=== PATIENT | male | born 1945 | race American Indian/Alaskan Native ===

== ENCOUNTER 2020-04-17 19:21 | Emergency (ER) | payer OTHER ==
--- OUTSIDE RECORDS SUMMARY | 2020-04-17 19:23 | XMS REPORT | Summary of Care ---
:1945 Author Organization [facility] Address [address] [place] [address] Care Team Providers Name Role Phone Karla Turner MD Primary Care Provider [phone] Reason for Visit (Routine) Status Reason Specialty Diagnoses / Procedures Referred By C ontact Referred To Contact Closed Radiology Procedures Robby Turner X-Ray XR CHEST 2 VW MD Karla [address] [place] [address] XR CHEST 2 VW [address] [place], [place] [address] [place] [address] Phone: [phone] Fax: Encounter Details Date Type Department Care Team Description 02/15/2020 Hospital Encounter [facility] Radiolog y Arrived [facility] [address] [place] [id number] [place] [phone] Allergies No Known Allergiesdocumented as of this encounter (statuses as of 02/16/2020) Medications Medication Sig Dispensed Refills Start Date End Date Status LISINOPRIL ORAL Take by mouth. 0 Active LOVASTATIN ORAL Take by mouth. 0 Active documented as of this encounter (statuses as of 02/16/2020) Active Problems No known active problemsdocumented as of this encounter (statuses as of 02/16/2020) Social History Tobacco Use Types Packs/Day Years Used Date Never Assessed Sex Assigned at Date Recorded Not on file COVID-19 Exposure Response Date Recorded In the last month, have you been in contact with No / Unsure 02/15/2020 2:43 PM CDT someone who was confirmed or suspected to have Coronavirus / COVID-19? documented as of this encounter Last Filed Vital Signs Not on filedocumented in this encounter Plan of Treatment Health Maintenance Due Date Last Done Comments HEPATITIS C (HCV) SCREEN 1945 Depression Screening 1957 DTaP,Tdap,and Td Vaccines (1 - Tdap) 1964 COLON CANCER SCREENING ANNUAL FIT/FOBT 1995 COLON CANCER SCREENING FIT DNA EVERY 3 YEARS 1995 COLON CANCER SCREENING SIGMOIDOSCOPY EVERY 5 YEARS 1995 COLONOSCOPY 1995 Colorectal Cancer Screening 1995 Zoster Recombinant Vaccine (SHINGRIX) (1 of 2) 1995 Medicare Wellness Visit 2010 PNEUMOCOCCAL VACCINES 65+ (1 of 1 - PPSV23) 2010 INFLUENZA VACCINE (#1) 2020 documented as of this encounter Procedures Procedure Name Priority Date/Time Associated Diagnosis Comme nts XR CHEST 2 VW Routine 02/15/2020 3:15 PM Cough Results for this CDT procedure are i n the results section . documented in this encounter Results XR CHEST 2 VW (02/15/2020 3:15 PM CDT) Specimen Narrative Performed At This result has an attachment that is no t available. HISTORY: Chest pain. PACS/VR/DOSE TECHNIQUE: PA and lateral views of the chest are obtai minerva. FINDINGS: No acute pneumonia detected. No pneumothorax or pleural effusion or pulmonary congestion. Cardiothoracic ratio of appro ximately 12.6/20 7. Cm is consistent with normal cardiac size. Calcified g ranuloma noted in the right lower lung. Old, healed fracture noted in left s ixth rib. CONCLUSIONS: No signs of acute cardiopulmonary disease . Procedure Note [facility], Radiant Results Inft User - 2019 3:19 PM CDT HISTORY: Chest pain. TECHNIQUE: PA and lateral views of the c hest are obtained. FINDINGS: No acute pneumonia detected. N o pneumothorax or pleural effusion or pulmonary congestion. Cardiothoracic ratio of approximately 12.6/20 7. Cm is consistent with normal cardiac siz e. Calcified granuloma noted in the right lower lung. Old, healed fracture n oted in left sixth rib. CONCLUSIONS: No signs of acute cardiopul monary disease. Performing Organization Address City/State/Zipcode Phone Number PACS/VR/DOSE documented in this encounter Visit Diagnoses Diagnosis Cough documented in this encounter Insurance Payer Benefit Plan / Subscriber ID Effective Dates Phone Addre ss Type Group [employer] [id number] 2019-Present Medicare Adv spring HMO [phone] [id number] (Work) documented as of this encounter
--- OUTSIDE RECORDS SUMMARY | 2020-04-17 19:23 | XMS REPORT | Summary of Care ---
:1945 Author Organization [facility] - Health Address [address] [place] [address] Care Team Providers Name Role Phone Karla Turner MD Primary Care Provider [phone] Encounter Details Date Type Department Care Team Description 02/15/2020 Orders Only [facility] Doctor Unassigned, No [address] [facility] Name [place] [id number] [address] [place] [phone] Allergies No Known Allergiesdocumented as of this encounter (statuses as of 02/15/2020) Medications Medication Sig Dispensed Refills Start Date End Date Status LISINOPRIL ORAL Take by mouth. 0 Active LOVASTATIN ORAL Take by mouth. 0 Active documented as of this encounter (statuses as of 02/15/2020) Active Problems No known active problemsdocumented as of this encounter (statuses as of 02/15/2020) Social History Tobacco Use Types Packs/Day Years [...] filedocumented in this encounter Plan of Treatment Date Type Specialty Care Team Description 02/15/2020 Appointment Radiology Radiology [address] [place] [id number] documented as of this encounter Procedures Procedure Name Priority Date/Time Associated Diagnosis Comme nts ASSIGNMENT OF BENEFITS Routine 02/15/2020 2:44 PM CDT documented in this encounter Results Not on filedocumented in this encounter Insurance Payer Benefit Plan Subscriber ID Effective Phone Address Typ e / Group Dates MEDICARE MEDICARE PART [id number] 2010-Pres [phone] [employer]. LATONYA fontanez [employer] ent [id number] YANE RAINES [phone] [id number] 2019-Pres Medicare Adv spring ent HMO documented as of this encounter
--- OUTSIDE RECORDS SUMMARY | 2020-04-17 19:23 | XMS REPORT | Continuity of Care Document ---
:[address] [facility] t Address [address] [place] [address] Care Team Providers Name Role Phone Radiology Attending Clinician Unavailable Doctor Unassigned, [place] Attending Clinician Unavailable Problems This patient has no known problems. Allergies, Adverse Reactions, Alerts This patient has no known allergies or adverse reactions. Medications This patient has no known medications. Procedures This patient has no known procedures. Encounters Start End Encounter Admission Attending Care Care Encounter Source Date/Time Date/Time Type Type Clinicians Facility Department ID 2020-02-15 2020-02-15 [facility] Radiology [facility] [id number] 14:46:04 23:59:00 Encounter Сергей [id number] [place] [id number] [place] [id number] 2020-02-15 2020-02-15 Orders Doctor KHURRAM [id number] 00:00:00 00:00:00 Only Unassigned, [place] [id number] [place] [facility] [id number] Results This patient has no known results.
--- NOTE | 2020-04-17 20:10 | RAD REPORT ---
EXAM DESCRIPTION: CT - Head Brain Wo Cont - 04/17/2020 7:55 pm CLINICAL HISTORY: Alteration of awareness/confusion COMPARISON: 2018 MRI TECHNIQUE: Computed axial tomography of the head was obtained. IV contrast was not requested. All CT scans are performed using dose optimization technique as appropriate and may include automated exposure control or mA/KV adjustment according to patient size. FINDINGS: An intracranial bleed is not seen . The ventricles are normal in caliber. No extra-axial fluid collection is noted. 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 Fluid within the sinuses/ mastoids is not seen. IMPRESSION: No acute intracranial abnormality is seen. If patient's symptoms persist MRI of the bra in would be recommended.
[2020-04-17 20:41] LABS: Absolute Lymphocytes (CBC) 2.3 K/uL (0.7-4.9); Basophils % 0.3 % (0-1.3); Lymphocytes % 22.4 % (15.3-44.8); MPV 8.5 fL (7.6-11.3); RBC Red Blood Cell Count 5.05 M/uL (4.33-5.43)
[2020-04-17 20:43] LABS: Protime INR 0.91
[2020-04-17] MEDS ORDERED: NA CHLORIDE 0.9% 1,000 ML ONE (20:49)
[2020-04-17 20:53] LABS: ALT/SGPT 23 U/L (12-78); AST/SGOT 19 U/L (15-37); Albumin 3.4 g/dL (3.4-5.0); Alkaline Phosphatase 72 U/L (45-117); BUN Blood Urea Nitrogen 22 mg/dL (7-18); Bicarbonate 26 mmol/L (21-32); Bilirubin Direct < 0.1 mg/dL (0-0.2); Bilirubin Total 0.2 mg/dL (0.2-1.0); CKMB Creatine Kinase MB < 1.0 ng/mL (0.3-3.6); Creatine Phosphokinase 72 U/L (39-308); Glucose Level 144 mg/dL (74-106); Lipase 162 U/L (73-393); Magnesium 1.7 mg/dL (1.8-2.4); Potassium 3.5 mmol/L (3.5-5.1); Protein, Total 7.4 g/dL (6.4-8.2); Sodium Level 143 mmol/L (136-145); Troponin (Emerg Dept Use Only) < 0.02 ng/mL (0.0-0.045)
--- NOTE | 2020-04-17 20:58 | RAD REPORT ---
EXAM DESCRIPTION: Laura Single View04/17/2020 8:13 pm CLINICAL HISTORY: Congestion COMPARISON: 2013 FINDINGS: The lungs appear clear of acute infiltrate. The heart is normal size IMPRESSION: No acute abnormalities displayed
--- NOTE | 2020-04-17 22:55 | EDPHYS ---
Physician Documentation [facility] Name: Jose G Corona Age: 74 yrs Sex: Male : 1945 Arrival Date: 04/17/2020 Time: 19:27 Bed 17 Private MD: ED Physician Yudelka Delgado HPI: 04/17 20:26 This 74 yrs old Other Male presents to ER via EMS with complaints of Near Syncope. ma2 20:26 The patient has experienced near-syncope. Onset: The symptoms/episode began/occurred ma2 gradually, 1 hour(s) ago. Duration: This was a single episode. Associated signs and symptoms: Pertinent negatives: agitation, blurred vision, combativeness, confusion, diarrhea, dizziness, headache. Current symptoms: Currently, the patient is not experiencing any symptoms. The patient has experienced a previous episode. patient states he felt dizzy while eating like room is spinning, he does not pass out of fell, he remembers what happened, he states since the stroke he has been feeling positional spinning episodes that lasts for few seconds quick on/off, he has no symptoms now, he states he was at dinner and his daughter got scared and called ems.. Historical: - Allergies: 19:36 No Known Allergies; dm5 - Home Meds: 19:36 atorvastatin oral oral [Active]; clopidogrel oral oral [Active]; losartan oral oral dm5 [Active]; amlodipine oral [Active]; - PMHx: 19:36 CVA; High Cholesterol; dm5 - PSHx: 19:36 Carotid surgery; dm5 - Immunization history:: Adult Immunizations up to date. - Social history:: Patient/guardian denies using alcohol, street drugs, The patient lives with family, Smoking status: Patient/guardian denies using tobacco. - Family history:: not pertinent. ROS: 20:26 Constitutional: Negative for fever, chills, and weight loss. ma2 20:26 All other systems are negative. Exam: 20:26 Abdomen/GI: Exam negative for ma2 20:26 Constitutional: This is a well developed, well nourished patient who is awake, alert, and in no acute distress. Head/Face: Normocephalic, atraumatic. Eyes: Pupils equal round and reactive to light, extra-ocular motions intact. Lids and lashes normal. Conjunctiva and sclera are non-icteric and not injected. Cornea within normal limits. Periorbital areas with no swelling, redness, or edema. ENT: Nares patent. No nasal discharge, no septal abnormalities noted. Tympanic membranes are normal and external auditory canals are clear. Oropharynx with no redness, swelling, or masses, exudates, or evidence of obstruction, uvula midline. Mucous membranes moist. Neck: Trachea midline, no thyromegaly or masses palpated, and no cervical lymphadenopathy. Supple, full range of motion without nuchal rigidity, or vertebral point tenderness. No Meningismus. Chest/axilla: Normal chest wall appearance and motion. Nontender with no deformity. No lesions are appreciated. Cardiovascular: Regular rate and rhythm with a normal S1 and S2. No gallops, murmurs, or rubs. Normal PMI, no JVD. No pulse deficits. Respiratory: Lungs have equal breath sounds bilaterally, clear to auscultation and percussion. No rales, rhonchi or wheezes noted. No increased work of breathing, no retractions or nasal flaring. Abdomen/GI: Soft, non-tender, with normal bowel sounds. No distension or tympany. No guarding or rebound. No evidence of tenderness throughout. Back: No spinal tenderness. No costovertebral tenderness. Full range of motion. Skin: Warm, dry with normal turgor. Normal color with no rashes, no lesions, and no evidence of cellulitis. MS/ Extremity: Pulses equal, no cyanosis. Neurovascular intact. Full, normal range of motion. Neuro: Awake and alert, GCS 15, oriented to person, place, time, and situation. Cranial nerves II-XII grossly intact. Motor strength 5/5 in all extremities. Sensory grossly intact. Cerebellar exam normal. Normal gait. Psych: Awake, alert, with orientation to person, place and time. Behavior, mood, and affect are within normal limits. Vital Signs: 19:29 BP 172 / 95; Pulse 98; Resp 20; Temp 98.3(TE); Pulse Ox 100% on R/A; Pain 0/10; dm5 20:58 BP 151 / 76; Pulse 85; Resp 18; Pulse Ox 96% on R/A; aj1 22:19 BP 146 / 84; Pulse 84; Resp 18; Pulse Ox 97% on R/A; aj1 23:00 BP 146 / 87; Pulse 81; Resp 18; Pulse Ox 98% on R/A; aj1 04/18 00:00 BP 153 / 80; Pulse 80; Resp 18; Pulse Ox 98% on R/A; aj1 MDM: 04/17 19:27 Patient medically screened. [facility] 20:26 Differential Diagnosis: emotional response, idiopathic syncope, vasovagal episode, ma2 vertigo. 22:53 Data reviewed: vital signs, nurses notes. Counseling: I had a detailed discussion with ma the patient and/or guardian regarding: the historical points, exam findings, and any diagnostic results supporting the discharge/admit diagnosis, the presence of at least one elevated blood pressure reading (>120/80) during this emergency department visit, the need for outpatient follow up. Response to treatment: the patient's symptoms have markedly improved after treatment. 04/17 19:29 Order name: UDS [facility] 04/17 19:29 Order name: Basic Metabolic Panel [facility] 04/17 19:29 Order name: CBC with Diff [facility] 04/17 19:29 Order name: Ckmb; Complete Time: 21:45 nc2 04/17 19:29 Order name: CPK; Complete Time: 21:45 nc2 04/17 19:29 Order name: Hepatic Function; Complete Time: 21:45 nc2 04/17 19:29 Order name: Lipase; Complete Time: 21:45 ma2 04/17 19:29 Order name: Magnesium; Complete Time: 21:45 nc2 04/17 19:29 Order name: Protime (+inr); Complete Time: 21:45 nc2 04/17 19:29 Order name: Ptt, Activated; Complete Time: 21:45 nc2 04/17 19:29 Order name: Troponin (emerg Dept Use Only); Complete Time: 21:45 nc2 04/17 19:29 Order name: Urine Drug Screen [facility] 04/17 19:29 Order name: Basic Metabolic Panel; Complete Time: 21:45 EDMS 04/17 19:29 Order name: CBC with Automated Diff; Complete Time: 21:45 EDMS 04/17 19:29 Order name: CT Head Brain wo Cont; Complete Time: 21:45 nc2 04/17 19:29 Order name: EKG; Complete Time: 19:30 ma2 04/17 19:29 Order name: Cardiac monitoring; Complete Time: 20:18 ma2 04/17 19:29 Order name: EKG - Nurse/Tech; Complete Time: 20:33 ma2 04/17 19:29 Order name: IV Saline Lock; Complete Time: 20:18 ma2 04/17 19:29 Order name: Labs collected and sent; Complete Time: 20:18 ma2 04/17 19:29 Order name: NPO; Complete Time: 20:18 ma2 04/17 19:29 Order name: O2 Per Protocol; Complete Time: 20:18 ma2 04/17 19:29 Order name: O2 Sat Monitoring; Complete Time: 20:18 ma2 04/17 19:29 Order name: Chest Single View XRAY; Complete Time: 21:45 ma2 04/17 23:01 Order name: Urine Dipstick--Ancillary (enter results) mw2 Administered Medications: Discontinued: NS 0.9% 1000 ml IV at 125 ml/hr continuous 20:37 Drug: NS 0.9% 1000 ml Route: IV; Rate: 125 ml/hr; Site: right antecubital; aj1 23:18 Follow up: IV Intake: 200ml dm5 04/18 00:25 Follow up: IV Status: Order to discontinue infusion aj1 Disposition: 04/17/20 22:54 Discharged to Home. Impression: Benign paroxysmal vertigo. - Condition is Stable. - Discharge Instructions: Benign Positional Vertigo. - Prescriptions for Meclizine 25 mg Oral Tablet - take 1 tablet by ORAL route every 8 hours As needed; 30 tablet. - Medication Reconciliation Form, Thank You Letter, Antibiotic Education, Prescription Opioid Use form. - Follow up: Private Physician; When: Tomorrow; Reason: Continuance of care. Signatures: Dispatcher [employer] Eli Pineda RN RN aj1 Leslye Campbell RN RN dm5 Yudelka Delgado MD MD ma2 Corrections: (The following items were deleted from the chart) 00:25 04/17 22:54 04/17/2020 22:54 Discharged to Home. Impression: Benign paroxysmal vertigo. aj1 Condition is Stable. Prescriptions for Meclizine 25 mg Oral Tablet - take 1 tablet by ORAL route every 8 hours As needed; 30 tablet. and Forms are Medication Reconciliation Form, Thank You Letter, Antibiotic Education, Prescription Opioid Use. Follow up: Private Physician; When: Tomorrow; Reason: Continuance of care. ma2
--- NOTE | 2020-04-17 22:55 | ER ---
Nurse's Notes [facility] Name: Jose G Corona Age: 74 yrs Sex: Male : 1945 Arrival Date: 04/17/2020 Time: 19:27 Bed 17 Private MD: Diagnosis: Benign paroxysmal vertigo Presentation: 04/17 19:29 Chief complaint: EMS states: pt had a near syncopal episode while eating dinner and dm5 became sweaty. Daughter thought pt was having another stroke. Pt EKG in route showed multiple PVCs. Pt denies any complaints at this time and states that all symptoms have resolved. Coronavirus screen: Client denies travel out of the [place] in the last 14 days. At this time, the client does not indicate any symptoms associated with coronavirus-19. Ebola Screen: Patient negative for fever greater than or equal to 101.5 degrees Fahrenheit, and additional compatible Ebola Virus Disease symptoms Patient denies exposure to infectious person. Patient denies travel to an Ebola-affected area in the 21 days before illness onset. No symptoms or risks identified at this time. Initial Sepsis Screen: Does the patient meet any 2 criteria? No. Patient's initial sepsis screen is negative. Does the patient have a suspected source of infection? No. Patient's initial sepsis screen is negative. Risk Assessment: Do you want to hurt yourself or someone else? Patient reports no desire to harm self or others. Onset of symptoms was April 17, 2020 at 19:00. 19:29 Method Of Arrival: EMS: [facility] dm5 19:29 Acuity: CHRIS 2 dm5 Historical: - Allergies: 19:36 No Known Allergies; dm5 - Home Meds: 19:36 atorvastatin oral oral [Active]; clopidogrel oral oral [Active]; losartan oral oral dm5 [Active]; amlodipine oral [Active]; - PMHx: 19:36 CVA; High Cholesterol; dm5 - PSHx: 19:36 Carotid surgery; dm5 - Immunization history:: Adult Immunizations up to date. - Social history:: Patient/guardian denies using alcohol, street drugs, The patient lives with family, Smoking status: Patient/guardian denies using tobacco. - Family history:: not pertinent. Screenin:45 Abuse screen: Denies threats or abuse. Denies injuries from another. Nutritional aj1 screening: No deficits noted. Tuberculosis screening: No symptoms or risk factors identified. 04/18 00:24 Fall Risk None identified. aj1 Assessment: 04/17 19:45 General: Appears in no apparent distress. comfortable, Behavior is calm, cooperative, aj1 appropriate for age. Pain: Denies pain. Neuro: Level of Consciousness is awake, alert, obeys commands, Oriented to person, place, time, situation, Golf Sales Manager are equal bilaterally Moves all extremities. Full function Speech is normal, Facial symmetry appears normal, Reports near syncope. Cardiovascular: Reports diaphoresis, lightheadedness, Denies chest pain, palpitations, shortness of breath, Heart tones S1 S2 present Patient's skin is warm and dry. Rhythm is regular Chest pain is denied. Respiratory: Airway is patent Respiratory effort is even, unlabored, Respiratory pattern is regular, symmetrical, Denies cough, shortness of breath. GI: No signs and/or symptoms were reported involving the gastrointestinal system. : No signs and/or symptoms were reported regarding the genitourinary system. EENT: No signs and/or symptoms were reported regarding the EENT system. Derm: No signs and/or symptoms reported regarding the dermatologic system. Skin is pink, warm \T\ dry. normal. Musculoskeletal: No signs and/or symptoms reported regarding the musculoskeletal system. Circulation, motion, and sensation intact. 19:50 Reassessment: Patient transported to CT via stretcher. aj1 20:05 Reassessment: CXR at bedside. aj1 20:56 Reassessment: Patient appears in no apparent distress at this time. No changes from aj1 previously documented assessment. Patient and/or family updated on plan of care and expected duration. Pain level reassessed. Patient is alert, oriented x 3, equal unlabored respirations, skin warm/dry/pink. 22:18 Reassessment: Patient and/or family updated on plan of care and expected duration. Pain aj1 level reassessed. General: Appears in no apparent distress. distressed, Behavior is calm, cooperative, appropriate for age. Pain: Denies pain. Neuro: Level of Consciousness is awake, alert, obeys commands, Oriented to person, place, time, situation, Speech is normal, Facial symmetry appears normal. Cardiovascular: Patient's skin is warm and dry. Respiratory: Airway is patent Respiratory effort is even, unlabored, Respiratory pattern is regular, symmetrical. Derm: Skin is pink, warm \T\ dry. normal. Musculoskeletal:. 23:23 Reassessment: contacted patients family to let them know that the patient would be dm5 discharged and he would need a ride home. Family stated that they would come peanut picker the patient. 04/18 00:22 Reassessment: Patient appears in no apparent distress at this time. No changes from aj1 previously documented assessment. Vital Signs: 04/17 19:29 BP 172 / 95; Pulse 98; Resp 20; Temp 98.3(TE); Pulse Ox 100% on R/A; Pain 0/10; dm5 20:58 BP 151 / 76; Pulse 85; Resp 18; Pulse Ox 96% on R/A; aj1 22:19 BP 146 / 84; Pulse 84; Resp 18; Pulse Ox 97% on R/A; aj1 23:00 BP 146 / 87; Pulse 81; Resp 18; Pulse Ox 98% on R/A; aj1 04/18 00:00 BP 153 / 80; Pulse 80; Resp 18; Pulse Ox 98% on R/A; aj1 ED Course: 04/17 19:27 Patient arrived in ED. dm5 19:27 Yudelka Delgado MD is Attending Physician. ma2 19:34 Triage completed. dm5 19:36 Arm band placed on right wrist. Patient placed in an exam room, on a stretcher, on dm5 school bus monitor, on pulse oximetry. 19:40 Eli Eaton, RN is Primary Nurse. aj1 19:45 Patient has correct armband on for positive identification. classroom monitor on. Pulse aj1 ox on. NIBP on. 19:45 No provider procedures requiring assistance completed. aj1 19:50 Inserted saline lock: 20 gauge in right antecubital area, using aseptic technique. aj1 Blood collected. Maintain EMS IV. Dressing intact. Good blood return noted. Site clean \T\ dry. Gauge \T\ site: 20g right hand. 19:54 CT Head Brain wo Cont In Process Unspecified. EDMS 20:13 Chest Single View XRAY In Process Unspecified. EDMS 22:08 pt's daughter Makeda [phone]. mw2 04/18 00:24 IV discontinued, intact, bleeding controlled, No redness/swelling at site. Pressure aj1 dressing applied. Administered Medications: Discontinued: NS 0.9% 1000 ml IV at 125 ml/hr continuous 04/17 20:37 Drug: NS 0.9% 1000 ml Route: IV; Rate: 125 ml/hr; Site: right antecubital; aj1 23:18 Follow up: IV Intake: 200ml dm5 04/18 00:25 Follow up: IV Status: Order to discontinue infusion aj1 Intake: 04/17 23:18 IV: 200ml; Total: 200ml. dm5 Outcome: 22:54 Discharge ordered by . luisa 04/18 00:24 Discharged to home ambulatory, with family. aj1 Condition: good Discharge instructions given to patient, Instructed on discharge instructions, follow up and referral plans. medication usage, Demonstrated understanding of instructions, follow-up care, medications, Prescriptions given X 1. 00:25 Patient left the ED. aj1 Signatures: Dispatcher [employer] Eli Pineda RN RN aj1 Leslye Campbell RN RN dm5 Yudelka Delgado MD MD ma2 Comfort [place] 2
[2020-04-17 23:21] LABS: Urine Blood NEGATIVE (NEG); Urine Glucose NEGATIVE (NEG); Urine Protein NEGATIVE (NEG); Urine Specific Gravity 1.025 (1.005-1.030); Urine pH 5.5 (5.0-7.0)
[2020-04-17 23:22] LABS: Barbiturates NEGATIVE (NEGATIVE); Benzodiazepines NEGATIVE (NEGATIVE); Cocaine NEGATIVE (NEGATIVE); METHAMPHETAM NEGATIVE (NEGATIVE); Methadone NEGATIVE (NEGATIVE); Opiates NEGATIVE (NEGATIVE); Phencyclidine NEGATIVE (NEGATIVE); THC Cannibis NEGATIVE (NEGATIVE)
[2020-04-18 01:30] VITALS: TEMP 98.3
[2020-04-18 01:35] VITALS: O2SAT 98
[2020-04-18 02:07] VITALS: BP 153/80
--- NOTE | 2020-04-19 06:10 | EKG ---
Test Date: 2020-04-17 Test Time: 20:24:29 Language Assistant: RUDI MEASUREMENT RESULTS: Intervals: Rate: 83 IN: 160 QRSD: 76 QT: 360 QTc: 423 [place]: P: 67 IN: 160 QRS: 10 T: 63 INTERPRETIVE STATEMENTS: Normal sinus rhythm Nonspecific T wave abnormality Abnormal ECG Compared to ECG 12/23/2013 10:18:12 T-wave abnormality now present Electronically Signed On 04-19-20 06:09:10 CONSERVATION AGENT by Guanaco Jones
== END 2020-04-18 00:25 | disposition home or self-care (01) ==
LOC: ER 19:21
DX: H81.10 Benign paroxysmal vertigo, unspecified ear (principal); E78.00 Pure hypercholesterolemia, unspecified; Z86.73 Personal history of transient ischemic attack (TIA), and cerebral infarction without residual deficits
CPT/HCPCS: 93005; 85025; 80048; 36415; 83735; 82550; 85610; 80076; 80307 ×8; 85730; 81003; 84484; 82553; 83690; 70450; 71045; J7030; 96360; 96361; 99285

== ENCOUNTER 2020-06-17 10:41 | Emergency (ER) | payer OTHER ==
--- OUTSIDE RECORDS SUMMARY | 2020-06-17 10:43 | XMS REPORT | Continuity of Care Document ---
:1945 Author Organization [facility] t Address [address] [place] [address] Care Team Providers Name Role Phone Radiology Attending Clinician Unavailable Doctor Unassigned, [place] Attending Clinician Unavailable Problems This patient has no known problems. Allergies, Adverse Reactions, Alerts This patient has no known allergies or adverse reactions. Medications This patient has no known medications. Procedures This patient has no known procedures. Encounters Start End Encounter Admission Attending Care Care Encounter Source Date/Time Date/Time Type Type Clinicians Facility Department ID 2020-02-15 2020-02-15 [facility] Radiology [facility] [id number] 14:46:04 23:59:00 Encounter Сергей [id number] [place] [id number] [place] [id number] 2020-02-15 2020-02-15 Orders Doctor KHURRAM [id number] 00:00:00 00:00:00 Only UnassignedGULSHAN [id number] [place] [facility] [id number] Results This patient has no known results.
[2020-06-17 13:43] LABS: SARS-COV-2 RT PCR NEGATIVE (NEGATIVE)
--- NOTE | 2020-06-17 13:55 | EDPHYS ---
Physician Documentation [facility] Name: Jose G Corona Age: 75 yrs Sex: Male : 1945 Arrival Date: 06/17/2020 Time: 10:44 Bed 7 Private MD: ED Physician Yudelka Delgado HPI: 06/17 13:24 This 75 yrs old Other Male presents to ER via Ambulatory with complaints of Cough. ma2 13:24 The patient or guardian reports cough. Onset: The symptoms/episode began/occurred ma2 gradually, 1 week(s) ago. Severity of symptoms: At their worst the symptoms were mild, in the emergency department the symptoms are unchanged. Associated signs and symptoms: Pertinent positives: Pertinent negatives: ear ache, rhinorrhea, vomiting. The patient has not experienced similar symptoms in the past. Historical: - Allergies: 11:01 No Known Allergies; ss - Home Meds: 12:50 amlodipine oral [Active]; atorvastatin Oral [Active]; clopidogrel Oral [Active]; hb losartan Oral [Active]; - PMHx: 11:01 CVA; High Cholesterol; Hypertension; ss - PSHx: 11:01 Carotid surgery; ss - Immunization history:: Adult Immunizations up to date. - Social history:: Smoking status: Patient reports the use of cigarette tobacco products, denies chronic smoking, but will smoke occasionally, Patient/guardian denies using alcohol, street drugs, The patient lives with spouse. - Family history:: not pertinent. ROS: 13:24 Constitutional: Negative for fever, chills, and weight loss. ma2 13:24 All other systems are negative. Exam: 13:24 Constitutional: This is a well developed, well nourished patient who is awake, alert, ma2 and in no acute distress. Head/Face: Normocephalic, atraumatic. Eyes: Pupils equal round and reactive to light, extra-ocular motions intact. Lids and lashes normal. Conjunctiva and sclera are non-icteric and not injected. Cornea within normal limits. Periorbital areas with no swelling, redness, or edema. ENT: Nares patent. No nasal discharge, no septal abnormalities noted. Tympanic membranes are normal and external auditory canals are clear. Oropharynx with no redness, swelling, or masses, exudates, or evidence of obstruction, uvula midline. Mucous membranes moist. Neck: Trachea midline, no thyromegaly or masses palpated, and no cervical lymphadenopathy. Supple, full range of motion without nuchal rigidity, or vertebral point tenderness. No Meningismus. Chest/axilla: Normal chest wall appearance and motion. Nontender with no deformity. No lesions are appreciated. Cardiovascular: Regular rate and rhythm with a normal S1 and S2. No gallops, murmurs, or rubs. Normal PMI, no JVD. No pulse deficits. Respiratory: Lungs have equal breath sounds bilaterally, clear to auscultation and percussion. No rales, rhonchi or wheezes noted. No increased work of breathing, no retractions or nasal flaring. Abdomen/GI: Soft, non-tender, with normal bowel sounds. No distension or tympany. No guarding or rebound. No evidence of tenderness throughout. MS/ Extremity: Pulses equal, no cyanosis. Neurovascular intact. Full, normal range of motion. Vital Signs: 10:59 BP 115 / 78; Pulse 96; Resp 17; Temp 99.0(TE); Pulse Ox 98% on R/A; Weight 68.04 kg; ss Height 5 ft. 6 in. (167.64 cm); Pain 0/10; 13:30 Pulse 87; Resp 16; Pulse Ox 100% on R/A; hb 10:59 Body Mass Index 24.21 (68.04 kg, 167.64 cm) ss MDM: 11:54 Patient medically screened. ma2 13:24 Differential Diagnosis: Bronchitis Influenza Upper Respiratory Infection Sinusitis. ma2 Data reviewed: vital signs, nurses notes. Counseling: I had a detailed discussion with the patient and/or guardian regarding: the historical points, exam findings, and any diagnostic results supporting the discharge/admit diagnosis, the presence of at least one elevated blood pressure reading (>120/80) during this emergency department visit, the need for outpatient follow up. Response to treatment: the patient's symptoms have markedly improved after treatment. 06/17 12:18 Order name: Chest Single View XRAY ma2 06/17 13:43 Order name: COVID-19/FLU A+B; Complete Time: 13:54 EDMS Administered Medications: No medications were administered Disposition: 06/17/20 13:54 Discharged to Home. Impression: Acute bronchitis. - Condition is Stable. - Discharge Instructions: Acute Bronchitis, Adult. - Prescriptions for Zithromax Z- Varun 250 mg Oral Tablet - take 1 tablet by ORAL route as directed for 5 days Day 1 - take two (2) tablets one time. Day 2, 3, 4 , 5 take one (1) tablet once daily.; 6 tablet. Medrol (Varun) 4 mg Oral Tablets, Dose Pack - take 1 tablet by ORAL route as directed - follow package instructions; 1 packet. Albuterol Sulfate 90 mcg/actuation - inhale 1-2 puff by INHALATION route every 4-6 hours; 1 Inhaler. - Medication Reconciliation Form, Thank You Letter, Antibiotic Education, Prescription Opioid Use form. - Follow up: Private Physician; When: Tomorrow; Reason: Continuance of care. Signatures: Dispatcher [employer] EDCT Rica Cordero RN RN ss Carey Leger RN RN Yudelka Delgado MD MD ma2 Corrections: (The following items were deleted from the chart) 12:53 12:20 Influenza Screen (A \T\ B)+BA.LAB.BRZ ordered. EDMS EDMS 12:53 12:24 CORONAVIRUS+MR.LAB.BRZ ordered. EDMS EDMS 14:21 13:54 06/17/2020 13:54 Discharged to Home. Impression: Acute bronchitis. Condition is ss Stable. Prescriptions for Zithromax Z-Varun 250 mg Oral Tablet - take 1 tablet by ORAL route as directed for 5 days Day 1 - take two (2) tablets one time. Day 2, 3, 4 , 5 take one (1) tablet once daily.; 6 tablet, Medrol (Varun) 4 mg Oral Tablets, Dose Pack - take 1 tablet by ORAL route as directed - follow package instructions; 1 packet, Albuterol Sulfate 90 mcg/actuation - inhale 1-2 puff by INHALATION route every 4-6 hours; 1 Inhaler. and Forms are Medication Reconciliation Form, Thank You Letter, Antibiotic Education, Prescription Opioid Use. Follow up: Private Physician; When: Tomorrow; Reason: Continuance of care. ma2
--- NOTE | 2020-06-17 13:55 | ER ---
Nurse's Notes [facility] Name: Jose G Corona Age: 75 yrs Sex: Male : 1945 Arrival Date: 06/17/2020 Time: 10:44 Bed 7 Private MD: Diagnosis: Acute bronchitis Presentation: 06/17 10:59 Chief complaint: Patient states: cough x 2 weeks. Denies fever and/or SOB. Coronavirus ss screen: Client denies travel out of the [place] in the last 14 days. Ebola Screen: Patient denies exposure to infectious person. Patient denies travel to an Ebola-affected area in the 21 days before illness onset. Initial Sepsis Screen: Does the patient meet any 2 criteria? No. Patient's initial sepsis screen is negative. Does the patient have a suspected source of infection? No. Patient's initial sepsis screen is negative. Risk Assessment: Do you want to hurt yourself or someone else? Patient reports no desire to harm self or others. Onset of symptoms was June 03, 2020. 10:59 Method Of Arrival: Ambulatory ss 10:59 Acuity: CHRIS 3 ss Historical: - Allergies: 11:01 No Known Allergies; ss - Home Meds: 12:50 amlodipine oral [Active]; atorvastatin Oral [Active]; clopidogrel Oral [Active]; hb losartan Oral [Active]; - PMHx: 11:01 CVA; High Cholesterol; Hypertension; ss - PSHx: 11:01 Carotid surgery; ss - Immunization history:: Adult Immunizations up to date. - Social history:: Smoking status: Patient reports the use of cigarette tobacco products, denies chronic smoking, but will smoke occasionally, Patient/guardian denies using alcohol, street drugs, The patient lives with spouse. - Family history:: not pertinent. Screenin:15 Abuse screen: Denies threats or abuse. Denies injuries from another. Nutritional hb screening: No deficits noted. Tuberculosis screening: No symptoms or risk factors identified. Fall Risk None identified. Assessment: 12:15 General: Appears in no apparent distress. Behavior is calm, cooperative. Pain: Denies hb pain. Neuro: Level of Consciousness is awake, alert, obeys commands, Oriented to person, place, time, situation. Cardiovascular: Capillary refill < 3 seconds Patient's skin is warm and dry. Respiratory: Reports cough that is non-productive, Respiratory effort is even, unlabored, Respiratory pattern is regular, symmetrical. GI: No signs and/or symptoms were reported involving the gastrointestinal system. : No signs and/or symptoms were reported regarding the genitourinary system. EENT: No signs and/or symptoms were reported regarding the EENT system. Derm: Skin is pink, warm \T\ dry. Musculoskeletal: No signs and/or symptoms reported regarding the musculoskeletal system. 13:30 Reassessment: Patient appears in no apparent distress at this time. No changes from previously documented assessment. Patient and/or family updated on plan of care and expected duration. Pain level reassessed. Vital Signs: 10:59 BP 115 / 78; Pulse 96; Resp 17; Temp 99.0(TE); Pulse Ox 98% on R/A; Weight 68.04 kg; Height 5 ft. 6 in. (167.64 cm); Pain 0/10; 13:30 Pulse 87; Resp 16; Pulse Ox 100% on R/A; hb 10:59 Body Mass Index 24.21 (68.04 kg, 167.64 cm) ED Course: 10:44 Patient arrived in ED. ds1 11:00 Triage completed. 11:01 Arm band placed on left wrist. 11:54 Yudelka Delgado MD is Attending Physician. [facility] 11:54 Carey Leger, RN is Primary Nurse. 12:15 Patient has correct armband on for positive identification. Bed in low position. Call hb light in reach. Side rails up X 1. 12:53 Chest Single View XRAY In Process Unspecified. EDME 14:15 No provider procedures requiring assistance completed. Patient did not have IV access hb during this emergency room visit. Administered Medications: No medications were administered Outcome: 13:54 Discharge ordered by . ma2 14:15 Discharged to home ambulatory, with family. 14:15 Condition: stable 14:15 Discharge instructions given to patient, family, Instructed on discharge instructions, follow up and referral plans. medication usage, Demonstrated understanding of instructions, follow-up care, medications, Prescriptions given X 1. 14:21 Patient left the ED. Signatures: Dispatcher [facility] AwanTrudi bear ds1 Rica Cordero RN RN Carey Leger, RN RN hb Yudelka Delgado, MD REN ma2
--- NOTE | 2020-06-17 14:19 | RAD REPORT ---
EXAM DESCRIPTION: RAD - Chest Single View - 06/17/2020 12:50 pm CLINICAL HISTORY: CONGESTION COMPARISON: Portable March 2020 TECHNIQUE: AP portable chest image was obtained 06/17/2020 12:50 pm . FINDINGS: No focal lung parenchymal process. Granulomata noted. Interstitial pattern is accentuated by slightly shallow inspiration. Minimal interstitial edema or infiltrate could be masked. Heart and vasculature are normal. No measurable pleural effusion and no pneumothorax. No acute bony abnormality seen. No acute aortic findings suspected. IMPRESSION: No focal mass or consolidation peer Interstitial pattern is accentuated by shallow inspiration potentially masking mild interstitial domenic a or infiltrate.
[2020-06-17 14:41] VITALS: BP 115/78; TEMP 99; O2SAT 98
== END 2020-06-17 14:21 | disposition home or self-care (01) ==
LOC: ER 10:41
DX: J20.9 Acute bronchitis, unspecified (principal); Z20.822 Contact with and (suspected) exposure to COVID-19; F17.210 Nicotine dependence, cigarettes, uncomplicated; Z86.73 Personal history of transient ischemic attack (TIA), and cerebral infarction without residual deficits; E78.00 Pure hypercholesterolemia, unspecified; I10 Essential (primary) hypertension; Z79.02 Long term (current) use of antithrombotics/antiplatelets
CPT/HCPCS: 0240U; 71045; 99283

== ENCOUNTER 2021-01-24 09:30 | Emergency (ER) | payer OTHER ==
--- OUTSIDE RECORDS SUMMARY | 2021-01-24 10:48 | XMS REPORT | Continuity of Care Document ---
:1945 Author Organization [facility] t Address [address] [place] [address] Care Team Providers Name Role Phone Radiology Attending Clinician Unavailable Doctor Unassigned, [place] Attending Clinician Unavailable Problems This patient has no known problems. Allergies, Adverse Reactions, Alerts This patient has no known allergies or adverse reactions. Medications This patient has no known medications. Procedures This patient has no known procedures. Encounters Start End Encounter Admission Attending Care Care Encounter Source Date/Time Date/Time Type Type Clinicians Facility Department ID 2020-02-15 2020-02-15 [facility] Radiology [facility] [id number] 14:46:04 23:59:00 Encounter Сергей [id number] [place] [id number] [place] [id number] 2020-02-15 2020-02-15 Orders Doctor KHURRAM [id number] 00:00:00 00:00:00 Only UnassignedGULSHAN [id number] [place] [facility] [id number] Results This patient has no known results.
[2021-01-24 11:58] LABS: SARS-COV-2 RT PCR NEGATIVE (NEGATIVE)
--- NOTE | 2021-01-24 12:00 | ER ---
Nurse's Notes [facility] Name: Jose G Corona Age: 75 yrs Sex: Male : 1945 Arrival Date: 01/24/2021 Time: 09:32 Bed Waiting Private MD: Wilda Turner R Diagnosis: Cough;Encounter for covid test post exposure Presentation: 01/24 09:48 Chief complaint: Patient states: cough for 3 weeks. + COVID exposure. Coronavirus tw2 screen: cough unrelated to allergies, Client presents with at least one sign or symptom that may indicate coronavirus-19. Standard/surgical mask placed on the client. Provider contacted for isolation considerations. Ebola Screen: Patient denies travel to an Ebola-affected area in the 21 days before illness onset. Initial Sepsis Screen: Does the patient meet any 2 criteria? No. Patient's initial sepsis screen is negative. Does the patient have a suspected source of infection? No. Patient's initial sepsis screen is negative. Risk Assessment: Do you want to hurt yourself or someone else? Patient reports no desire to harm self or others. Note provider CURTIS Chow in triage performing assessment at this time. Onset of symptoms was January 24, 2021. 09:48 Method Of Arrival: Ambulatory tw2 09:48 Acuity: CHRIS 4 tw2 Triage Assessment: 09:48 General: Appears in no apparent distress. Behavior is calm, cooperative, appropriate tw2 for age. Pain: Denies pain. Respiratory: Airway is patent Respiratory effort is even, unlabored, Respiratory pattern is regular, symmetrical, Parent/caregiver reports the patient having cough that is. Musculoskeletal: Range of motion: intact in all extremities. Historical: - Allergies: 09:56 No Known Allergies; tw2 - Home Meds: 09:56 amlodipine oral [Active]; atorvastatin Oral [Active]; clopidogrel Oral [Active]; tw2 losartan Oral [Active]; - PMHx: 09:56 CVA; High Cholesterol; Hypertension; tw2 - Immunization history:: Adult Immunizations. - Social history:: Smoking status: . Screenin:31 Abuse screen: Denies threats or abuse. Nutritional screening: No deficits noted. tw2 Tuberculosis screening: No symptoms or risk factors identified. Fall Risk None identified. Assessment: 12:31 Reassessment: Patient appears in no apparent distress at this time. No changes from tw2 previously documented assessment. Patient and/or family updated on plan of care and expected duration. Pain level reassessed. Patient is alert, oriented x 3, equal unlabored respirations, skin warm/dry/pink. Vital Signs: 09:48 BP 136 / 65; Pulse 96; Resp 18; Temp 98.2(TE); Pulse Ox 98% on R/A; tw2 ED Course: :32 Patient arrived in ED. as 09:32 Wilda Turner MD is Private Physician. as 09:50 Breanna Lacey FNP-C [facility]. kb 09:50 Stefan Sims MD is Attending Physician. kb 09:56 Triage completed. tw2 09:56 Arm band placed on. tw2 12:31 pt leaving from lobby. tw2 12:31 No provider procedures requiring assistance completed. Patient did not have IV access tw2 during this emergency room visit. Administered Medications: No medications were administered Outcome: 12:00 Discharge ordered by . kb 12:31 Discharged to home ambulatory, with significant other. tw2 12:31 Condition: stable 12:31 Discharge instructions given to patient, family, Instructed on discharge instructions, follow up and referral plans. Demonstrated understanding of instructions, follow-up care. 12:32 Patient left the ED. tw2 Signatures: Breanna Lacey FNP-C FNP-Ckb Martinez, Amelia as Shweta Carney, RN RN tw2
--- NOTE | 2021-01-24 12:00 | EDPHYS ---
Physician Documentation [facility] Name: Jose G Corona Age: 75 yrs Sex: Male : 1945 Arrival Date: 01/24/2021 Time: 09:32 Bed Waiting Private MD: Wilda Turner R ED Physician Stefan Sims HPI: 01/24 15:44 This 75 yrs old Other Male presents to ER via Ambulatory with complaints of r/o covid. kb 15:44 The patient or guardian reports cough, that is intermittent, described as mild, with no kb sputum. Onset: The symptoms/episode began/occurred 3 week(s) ago. Severity of symptoms: At their worst the symptoms were moderate, in the emergency department the symptoms have improved. Modifying factors: The symptoms are alleviated by nothing, the symptoms are aggravated by nothing. Associated signs and symptoms: The patient has no apparent associated signs or symptoms. The patient has not experienced similar symptoms in the past. The patient has not recently seen a physician. Pt reports cough for 3 weeks that is getting better. States found out a friend he was run recently to tested positive for Covid yesterday so he came in to make sure that was not what is causing his cough.. Historical: - Allergies: 09:56 No Known Allergies; tw2 - Home Meds: 09:56 amlodipine oral [Active]; atorvastatin Oral [Active]; clopidogrel Oral [Active]; tw2 losartan Oral [Active]; - PMHx: 09:56 CVA; High Cholesterol; Hypertension; tw2 - Immunization history:: Adult Immunizations. - Social history:: Smoking status: . ROS: 15:43 Constitutional: Negative for fever, chills, and weight loss. kb 15:43 Respiratory: Positive for cough, Negative for dyspnea on exertion, hemoptysis, orthopnea, pleurisy, shortness of breath, sputum production, wheezing. 15:43 All other systems are negative. Exam: 15:43 Constitutional: This is a well developed, well nourished patient who is awake, alert, kb and in no acute distress. Head/Face: Normocephalic, atraumatic. ENT: Moist Mucous membranes Cardiovascular: Regular rate and rhythm with a normal S1 and S2. No gallops, murmurs, or rubs. No pulse deficits. Respiratory: Respirations even and unlabored. No increased work of breathing, no retractions or nasal flaring. Skin: Warm, dry with normal turgor. Normal color. MS/ Extremity: Pulses equal, no cyanosis. Neurovascular intact. Full, normal range of motion. Neuro: Awake and alert, GCS 15, oriented to person, place, time, and situation. Moves all extremities. Normal gait. Psych: Awake, alert, with orientation to person, place and time. Behavior, mood, and affect are within normal limits. Vital Signs: 09:48 BP 136 / 65; Pulse 96; Resp 18; Temp 98.2(TE); Pulse Ox 98% on R/A; tw2 MDM: 09:50 Patient medically screened. kb 11:59 Data reviewed: vital signs, nurses notes. Data interpreted: Pulse oximetry: on room air kb is 98 %. Interpretation: normal. Counseling: I had a detailed discussion with the patient and/or guardian regarding: the historical points, exam findings, and any diagnostic results supporting the discharge/admit diagnosis, lab results, the need for outpatient follow up, a family practitioner, to return to the emergency department if symptoms worsen or persist or if there are any questions or concerns that arise at home. 01/24 11:59 Order name: COVID-19/FLU A+B; Complete Time: 11:59 EDMS Administered Medications: No medications were administered Disposition: 01/25 07:00 Co-signature as Attending Physician, Stefan Sims MD I agree with the assessment and sp3 plan of care. Disposition Summary: 01/24/21 12:00 Discharge Ordered Location: Home kb Condition: Stable kb Diagnosis - Cough kb - Encounter for covid test post exposure kb Followup: kb - With: Emergency Department - When: As needed - Reason: Worsening of condition Followup: kb - With: Private Physician - When: 2 - 3 days - Reason: Recheck today's complaints, Continuance of care, Re-evaluation by your physician Discharge Instructions: - Discharge Summary Sheet kb - Cough, Adult, [id number] kb Forms: - Medication Reconciliation Form kb - Thank You Letter kb - Antibiotic Education kb - Prescription Opioid Use kb Signatures: Dispatcher [employer] EDMS Breanna Lacey, CURTIS-C CURTIS-Shweta Rizvi, RN RN tw2 Stefan Sims MD MD sp3 Corrections: (The following items were deleted from the chart) 01/24 11: 09:51 CORONAVIRUS+MR.LAB.STEPHANIE ordered. EDMS EDMS 09:51 Influenza Screen (A \T\ B)+BA.MARIO.STEPHANIE ordered. EDMS EDMS
[2021-01-24 12:37] VITALS: BP 136/65; TEMP 98.2; O2SAT 98
== END 2021-01-24 12:32 | disposition home or self-care (01) ==
LOC: ER 09:30
DX: R05 Cough (principal); Z20.822 Contact with and (suspected) exposure to COVID-19
CPT/HCPCS: 0240U; 99281

== ENCOUNTER 2024-05-27 13:44 | Inpatient (IN) | payer OTHER ==
--- OUTSIDE RECORDS SUMMARY | 2024-05-27 13:48 | XMS REPORT | Continuity of Care Document ---
Author Name Unknown Address [address] [place] [address] [facility] thconnect Address [address] [place] [address] Care Team Providers Care Market Survey Representative Name Role Phone Christine Leija Primary Care Physician [phone] Maryana Hector Attending Clinician Unavailable Christine Leija Attending Clinician Unavailable Turner Mackey MD Attending Clinician [phone] Doctor Unassigned, [place] Attending Clinician U FERMÍN Farnsworth Attending Clinician Haley vailable SUDHAKAR HE Attending Clinician Unavailable Sudhakar Ryan Attending Clinician [phone] RADIOLOGY Attending Clinician Unavailable Radiology Attending Clinician Unavailable Belinda MAGAÑA Attending Clinician Unavailable Belinda España Attending Clinician [phone] SUDHAKAR HE Admitting Clinician Unavailable CHRISTINE LEIJA Admitting Clinician Unavailable Payers Payer Name Policy Type Policy Number Effective Date Expirati on Date Source [place] [place] [id number] 2021 00:00:00 Problems Condition Name Condition Details Condition Category Status Onset Date Resolution Date Last Treatment Date Treating Clinician Comments Source No known active problems No known active problems Disease [facility] [id number] Stage 3a chronic kidney disease Problem [facility] [id number] Age related osteoporos is, unspecifie d pathologic al fracture presence Problem [facility] Primary osteoarthr itis Primary osteoarthr itis involving multiple joints Problem [facility] [id number] Seasonal allergic rhinitis, unspecifie d trigger Problem [facility] Hyperglyce lisha due to type 2 diabetes mellitus Type 2 diabetes mellitus with hyperglyce lisha Problem [facility] [id number] Atheroscle rosis of aorta Problem [facility] [id number] Aneurysm Problem [facility] Polyarthri tis Other polyosteoa rthritis Problem [facility] [id number] Atheroscle rosis of both carotid arteries Problem [facility] [id number] Mixed hyperlipid emia Problem [facility] [id number] Primary hypertensi on Problem [facility] [id number] Cigarette smoker Problem [facility] Allergies, Adverse Reactions, Alerts Allergy Name Allergy Type Status Severity Reaction(s) Onset Date Inactive Date Treating Clinician Comments Source NO KNOWN ALLERGIE S Drug Class Active [facility] Social History Social Habit Start Date Stop Date Quantity Comments Source History of tobacco use Cigarette Smoker [facility] Gender identity [facility] Sexual orientation [facility] Sex Assigned At [facility] Exposure to SARS-CoV-2 (event) 2021-09-08 00:00:00 2021-09-18 21:43:[address] [facility] Smoking Status Start Date Stop Date Source Tobacco smoking consumption unknown [facility] Current Smoker 2024-03-30 00:00:00 [facility] Ex-smoker 2023-01-23 00:00:00 2023-01-23 00:00:00 [facility] Medications Ordered Medication Name Filled Medication Name Start Date Stop Date Current Medication? Ordering Clinician Indication Dosage Frequency Signature (SIG) Comments Components Source LOVASTATIN ORAL 01-23 14:53: 50 Yes Take by mouth. [facility] clopidogreL 75 mg tablet 01-23 14:53: 50 Yes 1 tablet Orally Once a day [facility] losartan 100 mg tablet 01-23 14:53: 50 Yes 1 tablet Orally Once a day [facility] LISINOPRIL ORAL 01-23 14:52: 24 Yes Take by mouth. [facility] amLODIPine 10 mg tablet 11-28 00:00: 00 Yes 10mg Take 1 tablet by mouth in the morning. [facility] atorvastati n 80 mg tablet 11-28 00:00: 00 Yes 80mg Take 1 tablet by mouth in the morning. [facility] ezetimibe 10 mg tablet 11-28 00:00: 00 Yes 10mg Take 1 tablet by mouth in the morning. [facility] PROLIA 60 mg/mL injection 11-14 00:00: 00 Yes INJECT 1 SYRINGE (60MG) UNDER THE SKIN ONCE EVERY 6 MONTHS. [facility] benzonatate 100 mg capsule 05-21 00:00: 00 Yes [id number] 100mg Take 1 capsule by mouth 3 (three) times daily as needed for Cough. [facility] Prolia Prolia 2021-05 00:00: 00 No 60mg [facility] Vitamin D3 125 MCG (5000 UT) Vitamin D3 125 MCG (5000 UT) 01-28 00:00: 00 No 1{capsu le} QD Vitamin D3 125 MCG (5000 UT) Cholecalcif justin, Vitamin D3, 125 mcg (5,000 unit) capsule 01-28 00:00: 00 Yes 5000U 1 capsule. [facility] Prolia 60 MG/ML Prolia 60 MG/ML 01-17 00:00: 00 No Prolia 60 MG/ML LOVASTATIN ORAL 01-11 23:56: 45 Yes Take by mouth. [facility] Atorvastati n Calcium 80 MG Atorvastati n Calcium 80 MG No 1{table t} QD Atorvastat in Calcium 80 MG Ezetimibe 10 MG Ezetimibe 10 MG No 1{table t} QD Ezetimibe 10 MG amLODIPine Besylate 10 MG amLODIPine Besylate 10 MG No 1{table t} QD amLODIPine Besylate 10 MG Calcium 600 MG Calcium 600 MG No 1{table t_with_ meals} BID Calcium 600 MG Immunizations Ordered Immunization Name Filled Immunization Name Date Status Comments Source FLUZONE HIGH DOSE OVER 65 FLUZONE HIGH DOSE OVER 65 2022-02-28 09:31:00 Completed [facility] FLUZONE HIGH DOSE OVER 65 FLUZONE HIGH DOSE OVER 65 2022-02-28 09:31:00 Completed [facility] FLUZONE HIGH DOSE OVER 65 FLUZONE HIGH DOSE OVER 65 2022-02-28 09:31:00 Completed [facility] FLUZONE HIGH DOSE OVER 65 FLUZONE HIGH DOSE OVER 65 2022-02-28 09:31:00 Completed [facility] FLUZONE HIGH DOSE OVER 65 FLUZONE HIGH DOSE OVER 65 2022-02-28 09:31:00 Completed [facility] FLUZONE HIGH DOSE OVER 65 FLUZONE HIGH DOSE OVER 65 2022-02-28 09:31:00 Completed [facility] FLUZONE HIGH DOSE OVER 65 FLUZONE HIGH DOSE OVER 65 2022-02-28 09:31:00 Completed [facility] FLUZONE HIGH DOSE OVER 65 FLUZONE HIGH DOSE OVER 65 Unknown Completed [facility] FluAD Quad SD FluAD Quad SD Unknown Completed [facility] FLUZONE HIGH DOSE OVER 65 FLUZONE HIGH DOSE OVER 65 Unknown Completed [facility] FluAD Quad SD FluAD Quad SD Unknown Completed [facility] FLUZONE HIGH DOSE OVER 65 FLUZONE HIGH DOSE OVER 65 Unknown Completed [facility] FluAD Quad SD FluAD Quad SD Unknown Completed [facility] FLUZONE HIGH DOSE OVER 65 FLUZONE HIGH DOSE OVER 65 Unknown Completed [facility] FluAD Quad SD FluAD Quad SD Unknown Completed [facility] FLUZONE HIGH DOSE OVER 65 FLUZONE HIGH DOSE OVER 65 Unknown Completed [facility] Fluad (aIIV4) - SDS - 0.5mL Fluad (aIIV4) - SDS - 0.5mL Unknown Completed [facility] FLUZONE HIGH DOSE OVER 65 FLUZONE HIGH DOSE OVER 65 Unknown Completed [facility] Fluad (aIIV4) - SDS - 0.5mL Fluad (aIIV4) - SDS - 0.5mL Unknown Completed [facility] FLUZONE HIGH DOSE OVER 65 FLUZONE HIGH DOSE OVER 65 Unknown Completed [facility] Fluad (aIIV4) - SDS - 0.5mL Fluad (aIIV4) - SDS - 0.5mL Unknown Completed [facility] FLUZONE HIGH DOSE OVER 65 FLUZONE HIGH DOSE OVER 65 Unknown Completed [facility] Fluad (aIIV4) - SDS - 0.5mL Fluad (aIIV4) - SDS - 0.5mL Unknown Completed [facility] FLUZONE HIGH DOSE OVER 65 FLUZONE HIGH DOSE OVER 65 Unknown Completed [facility] Fluad (aIIV4) - SDS - 0.5mL Fluad (aIIV4) - SDS - 0.5mL Unknown Completed [facility] FLUZONE HIGH DOSE OVER 65 FLUZONE HIGH DOSE OVER 65 Unknown Completed [facility] Fluad (aIIV4) - SDS - 0.5mL Fluad (aIIV4) - SDS - 0.5mL Unknown Completed [facility] FLUZONE HIGH DOSE OVER 65 FLUZONE HIGH DOSE OVER 65 Unknown Completed [facility] Fluad (aIIV4) - SDS - 0.5mL Fluad (aIIV4) - SDS - 0.5mL Unknown Completed [facility] FLUZONE HIGH DOSE OVER 65 FLUZONE HIGH DOSE OVER 65 Unknown Completed [facility] Fluad (aIIV4) - SDS - 0.5mL Fluad (aIIV4) - SDS - 0.5mL Unknown Completed [facility] FLUZONE HIGH DOSE OVER 65 FLUZONE HIGH DOSE OVER 65 Unknown Completed [facility] Fluad (aIIV4) - SDS - 0.5mL Fluad (aIIV4) - SDS - 0.5mL Unknown Completed [facility] FLUZONE HIGH DOSE OVER 65 FLUZONE HIGH DOSE OVER 65 Unknown Completed [facility] Fluad (IIV) - SDS - 0.5mL Fluad (IIV) - SDS - 0.5mL Unknown Completed [facility] Vital Signs Vital Name Observation Time Observation Value Comments S bassem height 2024-03-30 08:40:00 66 [in_i] Commo n [facility] weight 2024-03-30 08:40:00 142 [lb_av] Comm on [facility] temperature 2024-03-30 08:40:00 97.5 [degF] Com [facility] bmi 2024-03-30 08:40:00 22.92 kg/m2 Comm on [facility] oximetry 2024-03-30 08:40:00 97 % Commo [facility] respiratory rate 2024-03-30 08:40:00 16 /min [facility] blood pressure systolic 2024-03-30 08:40:00 162 mm[Hg] [facility] blood pressure diastolic 2024-03-30 08:40:00 98 mm[Hg] [facility] height 2024-02-23 14:40:00 66 [in_i] Commo n [facility] weight 2024-02-23 14:40:00 Commo n [facility] temperature 2024-02-23 14:40:00 97.6 [degF] Com [facility] bmi 2024-02-23 14:40:00 23.24 kg/m2 Comm on [facility] oximetry 2024-02-23 14:40:00 94 % Commo n [facility] blood pressure systolic 2024-02-23 14:40:00 128 mm[Hg] [facility] blood pressure diastolic 2024-02-23 14:40:00 72 mm[Hg] [facility] height 2023-12-29 08:40:00 66 [in_i] Commo n [facility] weight 2023-12-29 08:40:00 148.2 [lb_av] Co mmon [facility] temperature 2023-12-29 08:40:00 97.2 [degF] Com [facility] bmi 2023-12-29 08:40:00 23.92 kg/m2 Comm on [facility] oximetry 2023-12-29 08:40:00 99 % Commo n [facility] respiratory rate 2023-12-29 08:40:00 16 /min [facility] blood pressure systolic 2023-12-29 08:40:00 138 mm[Hg] [facility] blood pressure diastolic 2023-12-29 08:40:00 78 mm[Hg] [facility] height 2023-12-29 08:40:00 66 [in_i] Commo n [facility] weight 2023-12-29 08:40:00 148.2 [lb_av] Co mmon [facility] temperature 2023-12-29 08:40:00 97.2 [degF] Com [facility] bmi 2023-12-29 08:40:00 23.92 kg/m2 Comm on [facility] oximetry 2023-12-29 08:40:00 99 % Commo n [facility] respiratory rate 2023-12-29 08:40:00 16 /min [facility] blood pressure systolic 2023-12-29 08:40:00 138 mm[Hg] [facility] blood pressure diastolic 2023-12-29 08:40:00 78 mm[Hg] [facility] height 2023-09-25 09:40:00 66 [in_i] Commo n [facility] weight 2023-09-25 09:40:00 144.6 [lb_av] Co mmon [facility] temperature 2023-09-25 09:40:00 97.1 [degF] Com mon [facility] bmi 2023-09-25 09:40:00 23.34 kg/m2 Comm on [facility] oximetry 2023-09-25 09:40:00 97 % Commo n [facility] respiratory rate 2023-09-25 09:40:00 16 /min [facility] blood pressure systolic 2023-09-25 09:40:00 132 mm[Hg] [facility] blood pressure diastolic 2023-09-25 09:40:00 84 mm[Hg] [facility] height 2023 10:00:00 66 [in_i] Commo n [facility] weight 2023 10:00:00 146 [lb_av] Comm on [facility] temperature 2023 10:00:00 97.8 [degF] Com mon [facility] bmi 2023 10:00:00 23.56 kg/m2 Comm on [facility] oximetry 2023 10:00:00 96 % Commo n [facility] respiratory rate 2023 10:00:00 16 /min [facility] blood pressure systolic 2023 10:00:00 133 mm[Hg] [facility] blood pressure diastolic 2023 10:00:00 78 mm[Hg] [facility] height 2023-05-26 10:40:00 66 [in_i] Commo n [facility] weight 2023-05-26 10:40:00 146.6 [lb_av] Co on [facility] temperature 2023-05-26 10:40:00 97.2 [degF] Com mon [facility] bmi 2023-05-26 10:40:00 23.66 kg/m2 Comm on [facility] oximetry 2023-05-26 10:40:00 95 % Commo n [facility] respiratory rate 2023-05-26 10:40:00 16 /min Common [facility] blood pressure systolic 2023-05-26 10:40:00 132 mm[Hg] [facility] blood pressure diastolic 2023-05-26 10:40:00 66 mm[Hg] Common [facility] height 2023-05-26 11:20:00 66 [in_i] Commo n [facility] weight 2023-05-26 11:20:00 146.6 [lb_av] Co on [facility] temperature 2023-05-26 11:20:00 97.2 [degF] Com [facility] bmi 2023-05-26 11:20:00 23.66 kg/m2 Comm on [facility] oximetry 2023-05-26 11:20:00 95 % Commo n [facility] respiratory rate 2023-05-26 11:20:00 16 /min Common [facility] blood pressure systolic 2023-05-26 11:20:00 132 mm[Hg] [facility] blood pressure diastolic 2023-05-26 11:20:00 66 mm[Hg] [facility] height 2023-03-13 11:20:00 66 [in_i] Commo n [facility] weight 2023-03-13 11:20:00 149 [lb_av] Comm on [facility] temperature 2023-03-13 11:20:00 97.9 [degF] Com mon [facility] bmi 2023-03-13 11:20:00 24.05 kg/m2 Comm on [facility] oximetry 2023-03-13 11:20:00 96 % Commo n [facility] respiratory rate 2023-03-13 11:20:00 16 /min Common [facility] blood pressure systolic 2023-03-13 11:20:00 126 mm[Hg] [facility] blood pressure diastolic 2023-03-13 11:20:00 61 mm[Hg] [facility] Systolic blood pressure 2023-01-23 19:48:00 131 mm[Hg] [facility] Diastolic blood pressure 2023-01-23 19:48:00 73 mm[Hg] [facility] Heart rate 2023-01-23 19:48:00 87 /min [facility] Body temperature 2023-01-23 19:48:[address] [facility] Respiratory rate 2023-01-23 19:48:00 18 /min [facility] Body height 2023-01-23 19:48:00 167.6 cm [facility] Body weight 2023-01-23 19:48:00 67.586 kg [facility] BMI 2023-01-23 19:48:00 24.05 kg/m2 [facility] Oxygen saturation in Arterial blood by Pulse oximetry 2023-01-23 19:48:00 96 /min [facility] height 2022-12-11 13:00:00 66 [in_i] Commo n [facility] weight 2022-12-11 13:00:00 147 [lb_av] Comm on [facility] temperature 2022-12-11 13:00:00 97.7 [degF] Com mon [facility] bmi 2022-12-11 13:00:00 23.72 kg/m2 Comm on [facility] oximetry 2022-12-11 13:00:00 95 % Commo n [facility] respiratory rate 2022-12-11 13:00:00 16 /min [facility] blood pressure systolic 2022-12-11 13:00:00 134 mm[Hg] Common [facility] blood pressure diastolic 2022-12-11 13:00:00 76 mm[Hg] [facility] height 2022-12-11 13:00:00 66 [in_i] Commo n [facility] weight 2022-12-11 13:00:00 147 [lb_av] Comm on [facility] temperature 2022-12-11 13:00:00 97.7 [degF] Com [facility] bmi 2022-12-11 13:00:00 23.72 kg/m2 Comm on [facility] oximetry 2022-12-11 13:00:00 95 % Commo n [facility] respiratory rate 2022-12-11 13:00:00 16 /min Common [facility] blood pressure systolic 2022-12-11 13:00:00 134 mm[Hg] Common [facility] blood pressure diastolic 2022-12-11 13:00:00 76 mm[Hg] Common [facility] height 2022-11-21 11:00:00 66 [in_i] Commo n [facility] weight 2022-11-21 11:00:00 148 [lb_av] Comm on [facility] temperature 2022-11-21 11:00:00 97.6 [degF] Com [facility] bmi 2022-11-21 11:00:00 23.89 kg/m2 Comm on [facility] oximetry 2022-11-21 11:00:00 99 % Commo n [facility] respiratory rate 2022-11-21 11:00:00 16 /min [facility] blood pressure systolic 2022-11-21 11:00:00 124 mm[Hg] [facility] blood pressure diastolic 2022-11-21 11:00:00 72 mm[Hg] [facility] Systolic blood pressure 2022-05-21 16:12:00 137 mm[Hg] [facility] Diastolic blood pressure 2022-05-21 16:12:00 88 mm[Hg] [facility] Heart rate 2022-05-21 16:12:00 101 /min [facility] Body temperature 2022-05-21 16:12:[address] [facility] Respiratory rate 2022-05-21 16:12:00 20 /min [facility] Body height 2022-05-21 16:12:00 167.6 cm [facility] Body weight 2022-05-21 16:12:00 68.04 kg [facility] BMI 2022-05-21 16:12:00 24.21 kg/m2 [facility] Oxygen saturation in Arterial blood by Pulse oximetry 2022-05-21 16:12:00 100 /min [facility] height 2022-02-28 09:00:00 66 [in_i] Commo n [facility] weight 2022-02-28 09:00:00 152 [lb_av] Comm on [facility] temperature 2022-02-28 09:00:00 97.6 [degF] Com mon [facility] bmi 2022-02-28 09:00:00 24.53 kg/m2 Comm on [facility] oximetry 2022-02-28 09:00:00 97 % Commo n [facility] respiratory rate 2022-02-28 09:00:00 20 /min [facility] blood pressure systolic 2022-02-28 09:00:00 141 mm[Hg] [facility] blood pressure diastolic 2022-02-28 09:00:00 82 mm[Hg] Common [facility] height 2021-12-31 11:00:00 Commo n [facility] weight 2021-12-31 11:00:00 152.4 [lb_av] Co mmon [facility] temperature 2021-12-31 11:00:00 97.8 [degF] Com mon [facility] bmi 2021-12-31 11:00:00 24.60 kg/m2 Comm on [facility] oximetry 2021-12-31 11:00:00 97 % Comm n [facility] respiratory rate 2021-12-31 11:00:00 15 /min [facility] blood pressure systolic 2021-12-31 11:00:00 104 mm[Hg] [facility] blood pressure diastolic 2021-12-31 11:00:00 64 mm[Hg] [facility] BMI 2021-09-19 02:37:00 24.21 kg/m2 [facility] Oxygen saturation in Arterial blood by Pulse oximetry 2021-09-19 02:37:00 97 /min [facility] Systolic blood pressure 2021-09-19 02:37:00 137 mm[Hg] [facility] Diastolic blood pressure 2021-09-19 02:37:00 55 mm[Hg] [facility] Heart rate 2021-09-19 02:37:00 93 /[facility] Body temperature 2021-09-19 02:37:[address] [facility] Respiratory rate 2021-09-19 02:37:00 17 /min [facility] Body height 2021-09-19 02:37:00 167.6 cm [facility] Body weight 2021-09-19 02:37:00 68.04 kg [facility] height 2021-08-21 09:00:00 Commo n [facility] weight 2021-08-21 09:00:00 152.4 [lb_av] Co mmon [facility] temperature 2021-08-21 09:00:00 97.3 [degF] Com mon [facility] bmi 2021-08-21 09:00:00 24.6 kg/m2 Commo n [facility] oximetry 2021-08-21 09:00:00 98 % Commo n [facility] respiratory rate 2021-08-21 09:00:00 16 /min Common [facility] blood pressure systolic 2021-08-21 09:00:00 126 mm[Hg] [facility] blood pressure diastolic 2021-08-21 09:00:00 78 mm[Hg] [facility] Procedures Procedure Date / Time Performed Performing Clinicia n Source ASSIGNMENT OF BENEFITS 2023-01-23 19:29:13 Doc[place]wyn r Unassigned[facility] [place] [facility] REFERRAL- REQUEST/RESPONSE 2023-01-02 05:01:00 Doctor Unassigned, [place] [facility] XR CHEST 1 VW 2022-05-21 17:26:42 Sudhakar He [facility] CONSENT/REFUSAL FOR DIAGNOSIS AND TREATMENT 2022-05-21 16:00:49 Doctor Unassigned, [place] [facility] DEXA AXIAL (HIP AND SPINE) 2022-01-09 14:20:[address] [facility] ASSIGNMENT OF BENEFITS 2022-01-09 13:33:47 Docto r Unassigned, [place] [facility] FOREIGN BODY REMOVAL - ORIFICE 2021-09-19 04:33:[address] [facility] NOTICE OF PRIVACY PRACTICES 2021-09-19 02:35:37 Doctor Unassigned, [place] [facility] CONSENT/REFUSAL FOR DIAGNOSIS AND TREATMENT 2021-09-19 02:34:56 Doctor Unassigned, [place] [facility] Encounters Start Date/Time End Date/Time Encounter Type Admission Type Attending [facility] Care Facility Care Department Encounter ID Source 2023-12-29 09:05:00 Outpatient Maryana Hector [facility] [id number] [facility] 2022-11-20 11:28:00 Outpatient Maryana Hector [facility] [id number] [facility] 2022-05-01 09:25:04 Outpatient Wagner, Na [facility] [id number] [facility] 2022-04-15 14:37:02 Outpatient Leija, Na [facility] [id number] [facility] 2022-04-04 08:10:02 Outpatient Leija, Na [facility] [id number] [facility] 2022-04-02 15:37:03 Outpatient Leija, Na [facility] [id number] [facility] 2021-12-27 09:06:02 Outpatient Leija, Na [facility] [id number] [facility] 2021-11-13 14:37:01 Outpatient Leija, Na [facility] [id number] [facility] 2021-08-21 09:35:05 Outpatient Leija, Na [facility] [id number] [facility] 2024-03-30 00:00:00 2024-03-30 00:00:00 OFFICE VISIT ESTAB PT LEVEL 4 [facility] [id number] [facility] 2024-02-23 00:00:00 2024-02-23 00:00:00 (TEL) [facility] [id number] [facility] 2024-02-23 00:00:00 2024-02-23 00:00:00 OFFICE VISIT ESTAB PT LEVEL 3 [facility] [id number] [facility] 2024-01-20 00:00:00 2024-01-20 00:00:00 (TEL) [facility] [id number] [facility] 2024-01-05 00:00:00 2024-01-05 00:00:00 (TEL) [facility] [id number] [facility] 2023-12-29 00:00:00 2023-12-29 00:00:00 OFFICE VISIT ESTAB PT LEVEL 4 [facility] [id number] [facility] 2023-11-10 00:00:00 2023-11-10 00:00:00 (TEL) [facility] [id number] [facility] 2023-10-10 00:00:00 2023-10-10 00:00:00 (TEL) [facility] [id number] [facility] 2023-09-25 00:00:00 2023-09-25 00:00:00 OFFICE VISIT ESTAB PT LEVEL 4 [facility] [id number] [facility] 2023 00:00:00 2023 00:00:00 OFFICE VISIT ESTAB PT LEVEL 1 [facility] [id number] [facility] 2023-05-26 00:00:00 2023-05-26 00:00:00 SUB ANNUAL [facility] VISIT [facility] [id number] [facility] 2023-05-26 00:00:00 2023-05-26 00:00:00 OFFICE VISIT ESTAB PT LEVEL 4 STLMLC STLMLC [id number] [facility] 2023-03-13 00:00:00 2023-03-13 00:00:00 OFFICE VISIT ESTAB PT LEVEL 4 STLMLC STLMLC [id number] [facility] 2023-02-04 00:00:00 2023-02-04 00:00:00 (TEL) STLMLC STLMLC [id number] [facility] 2023-01-23 15:00:00 2023-01-23 15:22:57 Office Visit Turner Mackey [facility] 1.2.840.114 350.1.13.10 4.2.7.2.686 [id number] [facility] 2023-01-23 15:00:00 2023-01-23 15:22:57 Outpatient TURNER JACOBO [facility] [id number] [facility] 2023-01-23 00:00:00 2023-01-23 00:00:00 Orders Only Doctor Unassigned, [place] [facility] 1.2.840.114 350.1.13.10 4.2.7.2.686 [id number] [facility] 2023-01-22 14:30:00 2023-01-22 14:30:00 Outpatient TURNER JACOBO [facility] [id number] [facility] 2023-01-02 00:00:00 2023-01-02 00:00:00 Orders Only Doctor Unassigned, [place] [facility] 1.2.840.114 350.1.13.10 4.2.7.2.686 [id number] [facility] 2022-12-27 00:00:00 2022-12-27 00:00[facility] [id number] 2022-12-19 00:00:00 2022-12-19 00:00:00 (TEL) [facility] [id number] [facility] 2022-12-11 00:00:00 2022-12-11 00:00:00 OFFICE VISIT ESTAB PT LEVEL 3 [facility] [id number] [facility] 2022-12-11 00:00:00 2022-12-11 00:00:00 SUB ANNUAL [facility] VIS[facility] [id number] [facility] 2022-11-21 00:00:00 2022-11-21 00:00:00 OFFICE VISIT ESTAB PT LEVEL 4 [facility] [id number] [facility] 2022-09-05 00:00:00 2022-09-05 00:00:00 (TEL) STLMLC STLMLC [id number] [facility] 2022-07-09 10:00:00 2022-07-09 10:00:00 Outpatient FERMÍN DEL VALLE [facility] [id number] [facility] 2022-07-09 00:00:00 2022-07-09 00:00:00 (TEL) STLMLC STLMLC [id number] [facility] 2022-05-21 10:13:00 2022-05-21 12:37:00 Emergency X SUDHAKAR HE [facility] ERT [id number] [facility] 2022-05-21 10:13:00 2022-05-21 12:37:00 Emergency Sudhakar He S [facility] 1.2.840.114 350.1.13.10 4.2.7.2.686 [id number] [facility] 2022-05-02 00:00:00 2022-05-02 00:00:00 (TEL) STLMLC STLMLC [id number] [facility] 2022-04-16 00:00:00 2022-04-16 00:00:00 OL DIG E/M SVC 11-20 MIN STLMLC STLMLC [id number] [facility] 2022-04-15 00:00:00 2022-04-15 00:00:00 (TEL) STLMLC STLMLC [id number] [facility] 2022-04-05 00:00:00 2022-04-05 00:00:00 (TEL) STLMLC STLMLC [id number] [facility] 2022-04-04 00:00:00 2022-04-04 00:00:00 OL DIG E/M SVC 11-20 MIN STLMLC STLMLC [id number] [facility] 2022-02-28 00:00:00 2022-02-28 00:00:00 OFFICE VISIT ESTAB PT LEVEL 1 STLMLC STLMLC [id number] [facility] 2022-02-21 00:00:00 2022-02-21 00:00:00 (TEL) STLMLC STLMLC [id number] [facility] 2022-01-24 00:00:00 2022-01-24 00:00:00 (TEL) STLMLC STLMLC [id number] [facility] 2022-01-17 00:00:00 2022-01-17 00:00:00 (TEL) STLMLC STLMLC [id number] [facility] 2022-01-09 08:35:11 2022-01-09 23:59:00 Outpatient R RADIOLOGY [facility] [id number] [facility] 2022-01-09 08:30:00 2022-01-09 23:59:00 Hospital Encounter Radiology [facility] 1.2.840.114 350.1.13.10 4.2.7.2.686 [id number] [facility] 2022-01-09 00:00:00 2022-01-09 00:00:00 Orders Only Doctor Unassigned, [place] [facility] 1.2.840.114 350.1.13.10 4.2.7.2.686 [id number] [facility] 2022-01-04 00:00:00 2022-01-04 00:00:00 (TEL) STLMLC STLMLC [id number] [facility] 2022-01-03 00:00:00 2022-01-03 00:00:00 (TEL) STLMLC STLMLC [id number] [facility] 2021-12-31 00:00:00 2021-12-31 00:00:00 OFFICE VISIT ESTAB PT LEVEL 4 STLMLC STLMLC [id number] [facility] 2021-11-14 00:00:00 2021-11-14 00:00:00 (TEL) STLMLC STLMLC [id number] [facility] 2021-11-14 00:00:00 2021-11-14 00:00:00 OL SANTIAGO E/M SVC 11-20 MIN STLMLC STLMLC [id number] [facility] 2021-11-13 00:00:00 2021-11-13 00:00:00 (TEL) STLMLC STLMLC [id number] [facility] 2021-09-18 21:48:00 2021-09-18 23:57:00 Emergency X Belinda MAGAÑA [facility] ERT [id number] [facility] 2021-09-18 21:48:00 2021-09-18 23:57:00 Emergency Belinda Magañage [facility] 1.2.840.114 350.1.13.10 4.2.7.2.686 [id number] [facility] 2021-09-18 00:00:00 2021-09-18 00:00:00 Orders Only Doctor Unassigned, [place] [facility] 1.2.840.114 350.1.13.10 4.2.7.2.686 [id number] [facility] 2021-08-28 00:00:00 2021-08-28 00:00:00 (TEL) STLMLC STLMLC [id number] [facility] 2021-08-21 00:00:00 2021-08-21 00:00:00 OFFICE VISIT NEW PT LEVEL 4 STLMLC STLMLC [id number] [facility] 2020-02-15 14:46:04 2020-02-15 23:59:00 Hospital Encounter Radiology [facility] 1.2.840.114 350.1.13.10 4.2.7.2.686 [id number] 2020-02-15 00:00:00 2020-02-15 00:00:00 Outpatient R RADIOLOGY [facility] [id number] [facility] 2020-02-15 00:00:00 2020-02-15 00:00:00 Orders Only Doctor Unassigned, [place] [facility] 1.2.840.114 350.1.13.10 4.2.7.2.686 [id number] Results Test Description Test Time Test Comments Results Result Co mments Source CBC W/AUTO [id number] 00:00:00* Test Item Value Reference Range Interpretation Comme nts NUCLEATED RBCS (test code = 28755-4) 0.0 /100 WBC'S See_Comment [Automated messa ge] The system which generated this result transmitted reference range: 0.0 /100 WBC'S. The reference range was not used to interpret this result as normal/abnormal. ABSOLUTE EOSINOPHILS (test code = 08739-8) 0.22 K/UL See_Comment [Automated messa ge] The system which generated this result transmitted reference range: 0.00-0.50 K/UL. The reference range was not used to interpret this result as normal/abnormal. ABSOLUTE LYMPHOCYTES (test code = 38856-3) 3.37 K/UL See_Comment [Automated messa ge] The system which generated this result transmitted reference range: 1.00-4.00 K/UL. The reference range was not used to interpret this result as normal/abnormal. ABSOLUTE MONOCYTES (test code = 46578-8) 0.60 K/UL See_Comment [Automated messa ge] The system which generated this result transmitted reference range: 0.20-1.00 K/UL. The reference range was not used to interpret this result as normal/abnormal. ABSOLUTE NEUTROPHILS (test code = 93795-0) 3.97 K/UL See_Comment [Automated messa ge] The system which generated this result transmitted reference range: 1.50-7.50 K/UL. The reference range was not used to interpret this result as normal/abnormal. BASOPHILS (test code = 45624-0) 0.4 % EOSINOPHILS (test code = 51578-8) 2.7 % HEMATOCRIT (test code = 57493-4) 43.4 % See_Comment [Automated messa ge] The system which generated this result transmitted reference range: 40.0-51.0 %. The reference range was not used to interpret this result as normal/abnormal. HEMOGLOBIN (test code = 718-7) 13.9 G/DL See_Comment [Automated messa ge] The system which generated this result transmitted reference range: 13.5-17.0 G/DL. The reference range was not used to interpret this result as normal/abnormal. LYMPHOCYTES (test code = 90266-7) 41.1 % MCH (test code = 51852-1) 26.9 PG See_Comment [Automated messa ge] The system which generated this result transmitted reference range: 25.0-33.0 PG. The reference range was not used to interpret this result as normal/abnormal. MCHC (test code = 14326-2) 32.0 G/DL See_Comment [Automated messa ge] The system which generated this result transmitted reference range: 31.0-36.0 G/DL. The reference range was not used to interpret this result as normal/abnormal. MCV (test code = 12397-2) 83.9 fL See_Comment [Automated messa ge] The system which generated this result transmitted reference range: 80.0-99.0 fL. The reference range was not used to interpret this result as normal/abnormal. MONOCYTES (test code = 20393-3) 7.3 % NEUTROPHILS (test code = 53643-4) 48.4 % PLATELET COUNT (test code = 19747-0) 239 K/UL See_Comment [Automated messa ge] The system which generated this result transmitted reference range: 130-400 K/UL. The reference range was not used to interpret this result as normal/abnormal. RBC (test code = 88005-5) 5.17 M/UL See_Comment [Automated messa ge] The system which generated this result transmitted reference range: 4.50-6.10 M/UL. The reference range was not used to interpret this result as normal/abnormal. RDW (test code = 65283-3) 14.6 % See_Comment [Automated messa ge] The system which generated this result transmitted reference range: 11.5-15.0 %. The reference range was not used to interpret this result as normal/abnormal. WBC (test code = 06428-8) 8.2 K/UL See_Comment [Automated messa ge] The system which generated this result transmitted reference range: 3.5-11.0 K/UL. The reference range was not used to interpret this result as normal/abnormal. CBC W/AUTO [id number] 00:00:00* Test Item Value Reference Range Interpretation Comme nts NUCLEATED RBCS (test code = 93818-1) 0.0 /100 WBC'S See_Comment [Automated messa ge] The system which generated this result transmitted reference range: 0.0 /100 WBC'S. The reference range was not used to interpret this result as normal/abnormal. ABSOLUTE EOSINOPHILS (test code = 47398-9) 0.16 K/UL See_Comment [Automated messa ge] The system which generated this result transmitted reference range: 0.00-0.50 K/UL. The reference range was not used to interpret this result as normal/abnormal. ABSOLUTE LYMPHOCYTES (test code = 39499-8) 3.00 K/UL See_Comment [Automated messa ge] The system which generated this result transmitted reference range: 1.00-4.00 K/UL. The reference range was not used to interpret this result as normal/abnormal. ABSOLUTE MONOCYTES (test code = 51083-3) 0.48 K/UL See_Comment [Automated messa ge] The system which generated this result transmitted reference range: 0.20-1.00 K/UL. The reference range was not used to interpret this result as normal/abnormal. ABSOLUTE NEUTROPHILS (test code = 89825-5) 3.31 K/UL See_Comment [Automated messa ge] The system which generated this result transmitted reference range: 1.50-7.50 K/UL. The reference range was not used to interpret this result as normal/abnormal. BASOPHILS (test code = 90407-6) 0.6 % EOSINOPHILS (test code = 06771-4) 2.3 % HEMATOCRIT (test code = 78809-4) 38.8 % See_Comment L [Automated messa ge] The system which generated this result transmitted reference range: 40.0-51.0 %. The reference range was not used to interpret this result as normal/abnormal. HEMOGLOBIN (test code = 718-7) 12.7 G/DL See_Comment L [Automated messa ge] The system which generated this result transmitted reference range: 13.5-17.0 G/DL. The reference range was not used to interpret this result as normal/abnormal. LYMPHOCYTES (test code = 79649-4) 42.8 % MCH (test code = 77942-5) 27.6 PG See_Comment [Automated messa ge] The system which generated this result transmitted reference range: 25.0-33.0 PG. The reference range was not used to interpret this result as normal/abnormal. MCHC (test code = 98119-1) 32.7 G/DL See_Comment [Automated messa ge] The system which generated this result transmitted reference range: 31.0-36.0 G/DL. The reference range was not used to interpret this result as normal/abnormal. MCV (test code = 25725-1) 84.3 fL See_Comment [Automated messa ge] The system which generated this result transmitted reference range: 80.0-99.0 fL. The reference range was not used to interpret this result as normal/abnormal. MONOCYTES (test code = 79828-8) 6.8 % NEUTROPHILS (test code = 87261-9) 47.2 % PLATELET COUNT (test code = 99491-4) 232 K/UL See_Comment [Automated messa ge] The system which generated this result transmitted reference range: 130-400 K/UL. The reference range was not used to interpret this result as normal/abnormal. RBC (test code = 68449-7) 4.60 M/UL See_Comment [Automated messa ge] The system which generated this result transmitted reference range: 4.50-6.10 M/UL. The reference range was not used to interpret this result as normal/abnormal. RDW (test code = 15432-9) 14.8 % See_Comment [Automated messa ge] The system which generated this result transmitted reference range: 11.5-15.0 %. The reference range was not used to interpret this result as normal/abnormal. WBC (test code = 01386-0) 7.0 K/UL See_Comment [Automated messa ge] The system which generated this result transmitted reference range: 3.5-11.0 K/UL. The reference range was not used to interpret this result as normal/abnormal.
[2024-05-27 15:03] LABS: Absolute Basophils 0.1 K/uL (0-0.5); Absolute Eosinophils 0.1 K/uL (0-0.5); Absolute Lymphocytes (CBC) 2.4 K/uL (0.7-4.9); Absolute Monocytes 0.7 K/uL (0.1-1.3); Absolute Neutrophil 6.9 K/uL (1.8-8.0); Basophils % 0.5 % (0-1.3); Eosinophils % 1.4 % (0-4.4); Hematocrit 42.1 % (39.6-49.0); Hemoglobin 13.9 g/dL (13.6-17.9); Lymphocytes % 23.6 % (15.3-44.8); MCH 27.5 pg (27.0-35.0); MCV 83.3 fL (80-100); MPV 7.5 fL (7.6-11.3); Monocytes % 7.2 % (3.3-12.3); Neutrophils % 67.3 % (41.7-73.7); Nucleated Red Blood Cells % 0.1 % (0-0); Platelets 282 thou/uL (152-406); RBC Red Blood Cell Count 5.05 M/uL (4.33-5.43); Red Cell Distribution Width 17.1 % (12.1-15.2)
[2024-05-27] MEDS ORDERED: NA CHLORIDE 0.9% 500 ML ONE (15:06)
--- NOTE | 2024-05-27 15:08 | RAD REPORT ---
EXAMINATION: ONE VIEW CHEST XR CLINICAL INDICATION: syncope TECHNIQUE: Frontal chest projection is submitted. Examination is limited by patient positioning and t echnique. COMPARISON: 06/17/2020 FINDINGS: Mild patchy opacities in both lung bases, greater on the left. This probably represents mild infiltra te/pneumonia. The heart is upper limit of normal in size. No displaced fractures identified.
[2024-05-27 15:36] LABS: ALT/SGPT 21 U/L (16-61); Albumin 3.4 g/dL (3.4-5.0); Albumin/Globulin Ratio 0.8 (1.1-1.8); Alkaline Phosphatase 52 U/L (45-117); Anion Gap 9.6 mEq/L (5.0-15.0); BUN Blood Urea Nitrogen 27 mg/dL (7-18); Bicarbonate 25 mEq/L (21-32); Bilirubin Total 0.4 mg/dL (0.2-1.0); Globulin 4.1 g/dL (2.3-3.5); Glomerular Filtration Rate 51 ml/min (=/>90); Glucose Level 100 mg/dL (74-106); NT PRO-BNP 88 pg/mL (<450); Protein, Total 7.5 g/dL (6.4-8.2); Sodium Level 141 mEq/L (136-145); Troponin High Sensitivity 6.8 pg/mL (<58.9)
[2024-05-27 15:39] LABS: AST/SGOT 24 U/L (15-37); Bilirubin Direct < 0.2 mg/dL (0-0.2); Bilirubin Indirect, Calculated 0.2 mg/dL (0.2-0.8); Magnesium 2.2 mg/dL (1.6-2.4); Potassium 4.6 mEq/L (3.5-5.1)
[2024-05-27 15:39] LABS: PT Prothrombin Time 10.9 SECONDS (9.4-12.5); Protime INR 0.97
--- NOTE | 2024-05-27 16:25 | RAD REPORT ---
EXAM: CT brain without contrast HISTORY: SYNCOPE COMPARISON: None TECHNIQUE: Multiple contiguous axial images were obtained and a CT of the brain without contrast. Sag ittal and coronal reformats were performed. One or more of the following dose reduction techniques were used: Automated exposure control, adjust ment of the mA and/or kV according to patient size, and/or iterative reconstruction. FINDINGS: No evidence of hydrocephalus, intracranial hemorrhage, or extra-axial fluid collection. Moderate brain atrophy with moderate periventricular and deep white matter chronic microvascular isc hemic changes present. No evidence of midline shift or areas of brain edema. The calvarium is intact. Moderate polypoid mucosal thickening right maxillary antrum. Paranasal sinus es and mastoids are otherwise clear. IMPRESSION: No evidence of acute intracranial abnormality. EXAM: CT of the cervical spine without contrast HISTORY: Neck pain, injury SYNCOPE TECHNIQUE: Multiple contiguous axial images were obtained in a CT of the cervical spine without contr ast. Sagittal and coronal reformats were performed. FINDINGS: The vertebral bodies demonstrate normal height and alignment. No evidence of acute fracture or subluxation.. Mild lower cervical degenerative spondylosis. No prevertebral soft tissue swelling is seen. The posterior facets are well aligned. Normal alignment of the skull base with the cervical spine is seen. Moderately severe bilateral carotid atherosclerosis. The lung apices are unremarkable. IMPRESSION: No evidence of acute osseous abnormality of the cervical spine.
--- NOTE | 2024-05-27 16:37 | RAD REPORT ---
EXAM: CTA of the chest, abdomen and pelvis HISTORY: Chest pain and back pain syncope;Abd pain COMPARISON: None TECHNIQUE: Multiple contiguous axial images were obtained a CTA of the chest and abdomen with contras t per aortic dissection protocol. This involves 3D reconstructions, MIPs, volume rendered images and/or shaded surface rendering. One or more of the following dose reduction techniques were used: Au tomated exposure control, adjustment of the mA and/or kV according to patient size, and/or iterative reconstruction. Unless otherwise specified, incidental findings do not require dedicated im aging follow-up. Sagittal and coronal 3-D MIP reformats were performed. FINDINGS: PULMONARY ARTERIES: Normal in caliber without filling defects to suggest pulmonary emboli. ASCENDING THORACIC AORTA: Moderate irregular atherosclerotic plaquing with mural thrombus. DESCENDING THORACIC AORTA: Moderate mural thrombus with moderate stenosis estimated at 50% at the le emre of the diaphragmatic hiatus. No dissection or aneurysm. ABDOMINAL AORTA: Moderate atherosclerosis and irregular mural thrombus without aneurysm or dissection . CELIAC TRUNK: Moderate stenosis at the origin. SMA: Patent AMAYA: Patent RENAL ARTERIES: Bilateral single renal arteries without significant atherosclerotic disease. MEDIASTINUM: No hilar or mediastinal lymphadenopathy. LUNGS: No focal infiltrates or masses. PLEURAL SPACE: No pleural effusion or pneumothorax. LIVER: Mild fatty liver.. SPLEEN: Unremarkable. PANCREAS: Unremarkable. KIDNEYS: Benign left renal cyst. No solid mass or hydronephrosis.. ADRENALS: Unremarkable. BOWEL: Moderate small bowel dilatation noted inferiorly in the abdomen likely a moderate mechanical s mall bowel obstruction. This appears to be caused by a moderate right inguinal hernia which is containing a small bowel loop and fluid suggesting incarceration.. RETROPERITONEUM: No lymphadenopathy. BONES: Unremarkable ADDITIONAL FINDINGS: IMPRESSION: No evidence of thoracic or abdominal aortic aneurysm or dissection. Moderate mechanical small bowel obstruction suspected to be caused by incarcerated right inguinal her pedro pablo.
[2024-05-27] MEDS ORDERED: FENTANYL CITR 100 MCG/2 ML ONE ×2 (17:01→18:22)
[2024-05-27] MEDS ORDERED: CEFOXITIN SODIUM 1 GM/VIAL ONE (18:21)
[2024-05-27] MEDS ORDERED: METRONIDAZOLE 500mg IVPB 500 MG/100 ML BAG IV ONE (18:22)
[2024-05-27] MEDS ORDERED: NA CHLORIDE 0.9% 50 ML ONE (18:22)
--- NOTE | 2024-05-27 18:23 | ER ---
Nurse's Notes [facility] Name: Jose G Corona Age: 78 yrs Sex: Male : 1945 Arrival Date: 05/27/2024 Time: 13:44 Bed 15 Private MD: Diagnosis: Syncope;Unilateral inguinal hernia, with obstruction, without gangrene, not specified as recurrent-right Presentation: 05/27 13:50 Chief complaint: EMS states: patient fell in the kitchen earlier and hit the back of ap3 his head. patient states that when he got up he was having neck pain. patient reports he is on plavix for a history of strokes. EMS has patient placed in C-Collar at this time. Coronavirus screen: At this time, the client does not indicate any symptoms associated with coronavirus-19. Ebola Screen: No symptoms or risks identified at this time. Risk Assessment:. Risk Assessment: Do you want to hurt yourself or someone else? Patient reports no desire to harm self or others. Onset of symptoms was May 27, 2024. Care prior to arrival: Cervical collar in place. IV initiated. 20 GA, in the right antecubital area. Mechanism of Injury: Fall. 13:50 Method Of Arrival: EMS: [facility] ap3 13:50 Acuity: CHRIS 2 ap3 20:19 Initial Sepsis Screen: Does the patient meet any 2 criteria? No. Patient's initial kj2 sepsis screen is negative. Does the patient have a suspected source of infection? No. Patient's initial sepsis screen is negative. Triage Assessment: 13:52 General: Appears in no apparent distress. Behavior is calm, cooperative, appropriate ap3 for age. Pain: Complains of pain in neck Pain began suddenly. Neuro: Level of Consciousness is awake, alert, obeys commands, Oriented to person, place, time, situation. Cardiovascular: Patient's skin is warm and dry. Respiratory: Airway is patent Respiratory effort is even, unlabored, Respiratory pattern is regular, symmetrical. Historical: - Allergies: 13:52 No Known Allergies; ap3 - Home Meds: 13:52 clopidogrel Oral [Active]; ap3 - PMHx: 13:52 CVA; High Cholesterol; Hypertension; ap3 - Immunization history:: Client reports receiving the 2nd dose of the Covid vaccine, Flu vaccine is up to date. - Infectious Disease History:: Denies. - Social history:: Smoking status: Patient denies any tobacco usage or history of. Screenin:53 Abuse screen: Denies threats or abuse. Nutritional screening: No deficits noted. ap3 Tuberculosis screening: No symptoms or risk factors identified. 15:13 [facility] ED Fall Risk Assessment (Adult) History of falling in the last 3 months, cm10 including since admission Yes- physiologic fall (2 pts) Confusion or Disorientation No (0 pts) Intoxicated or Sedated No (0 pts) Impaired Gait No (0 pts) Mobility Assist Device Used No (0 pt) Altered Elimination No (0 pt) Score/Fall Risk Level 0 - 2 = Low Risk Oriented to surroundings, Maintained a safe environment, Hourly rounding (assess needs \T\ fall precautionary measures) done. Assessment: 15:00 General: Appears in no apparent distress. uncomfortable, Behavior is calm, cooperative. cm10 Neuro: No deficits noted. Level of Consciousness is awake, alert, obeys commands, Oriented to person, place, time, situation, Appropriate for age. Neuro: Reports a syncopal episode. Respiratory: No deficits noted. Airway is patent Respiratory effort is even, unlabored, Respiratory pattern is regular, symmetrical. GI: No deficits noted. Reports lower abdominal pain, upper abdominal pain, constipation. Musculoskeletal: Pt in C-Collar. 18:35 Reassessment: Patient appears in no apparent distress at this time. Patient and/or cm10 family updated on plan of care and expected duration. Pain level reassessed. Patient is alert, oriented x 3, equal unlabored respirations, skin warm/dry/pink. 19:09 Reassessment: Patient appears in no apparent distress at this time. Patient and/or kj2 family updated on plan of care and expected duration. Pain level reassessed. Patient is alert, oriented x 3, equal unlabored respirations, skin warm/dry/pink. 20:10 Reassessment: Patient appears in no apparent distress at this time. Patient and/or kj2 family updated on plan of care and expected duration. Pain level reassessed. Patient is alert, oriented x 3, equal unlabored respirations, skin warm/dry/pink. Vital Signs: 14:27 BP 146 / 80; Pulse 88; Resp 15; Temp 98.1(O); Pulse Ox 97% on R/A; Weight 66.68 kg; cm10 Height 5 ft. 6 in. ; Pain 4/10; 16:30 BP 143 / 70; Pulse 96; Resp 17; Pulse Ox 96% on R/A; cm10 18:30 BP 151 / 82; Pulse 96; Resp 18; Pulse Ox 97% on R/A; cm10 19:09 BP 160 / 66; Pulse 71; Resp 18; Pulse Ox 96% ; kj2 20:10 BP 158 / 64; Pulse 68; Resp 18; Temp 98; Pulse Ox 100% on R/A; kj2 14:27 Body Mass Index 23.73 (66.68 kg, 167.64 cm) cm10 14:27 Pain Scale: Adult cm10 ED Course: 13:47 Patient arrived in ED. em1 13:49 Harry Davis PA is PHCP. cp 13:49 Tin Borrego MD is Attending Physician. cp 13:52 Triage completed. ap3 13:54 Adrienne Farmer, RN is Primary Nurse. cm10 14:28 Arm band placed on right wrist. Patient placed in an exam room, on a stretcher. cm10 14:50 XRAY Chest (1 view) In Process Unspecified. EDMS 14:56 Basic Metabolic Panel Sent. cm10 14:56 CBC with Diff Sent. cm10 14:56 LFT's Sent. cm10 14:56 Magnesium Sent. cm10 14:56 NT PRO-BNP Sent. cm10 14:56 Troponin HS Sent. cm10 14:56 PT-INR Sent. cm10 14:57 Initial lab(s) drawn, by me, sent to lab. EKG done, by ED staff, reviewed by Harry CHE. Maintain EMS IV. Dressing intact. Good blood return noted. Site clean \T\ dry. Gauge \T\ site: 20g right ac. Flushed with 10 mL NS. 15:13 Patient has correct armband on for positive identification. Bed in low position. Call cm10 light in reach. Side rails up X2. Provided Education on: ER process and procedures.. Client placed on continuous cardiac and pulse oximetry monitoring. NIBP monitoring applied. residential team leader on. 16:09 CT Aorta for Dissection In Process Unspecified. EDMS 16:09 CT Head C Spine In Process Unspecified. EDMS 18:21 Jeanie Anand MD is Hospitalizing Provider. cp 20:19 No provider procedures requiring assistance completed. kj2 21:42 Patient admitted, IV remains in place. ha1 Administered Medications: 15:09 Drug: NS 0.9% IV 500 ml 500 ml IV at 500 ml/hr once; to be given as a bolus over 60 cm10 minutes Volume: 500 ml; Route: IV; Rate: 500 ml/hr; Site: right antecubital; 18:35 Follow up: Response: No adverse reaction; IV Status: Completed infusion; IV Intake: cm10 500ml 17:23 Drug: fentaNYL (PF) IVP 25 mcg IVP once Route: IVP; Site: right antecubital; cm10 17:53 Follow up: Response: No adverse reaction cm10 18:32 Drug: fentaNYL (PF) IVP 25 mcg IVP once Route: IVP; Site: right antecubital; cm10 19:10 Follow up: Response: No adverse reaction kj2 18:32 Drug: cefOXitin IVPB 1 grams IVPB once over 30 mins; (mix in 50 mL NS) Route: IVPB; cm10 Infused Over: 30 mins; Site: right antecubital; 19:00 Follow up: Response: No adverse reaction; IV Status: Completed infusion; IV Intake: [id number] 19:09 Drug: metroNIDAZOLE IVPB 500 mg 100 ml IVPB once over 30 mins Volume: 100 ml; Route: kj2 IVPB; Infused Over: 30 mins; Site: right antecubital; 21:43 Follow up: Response: No adverse reaction; IV Status: Completed infusion; IV Intake: ha1 100ml Medication: 20:18 VIS not applicable for this client. kj2 Intake: 18:35 IV: 500ml; Total: 500ml. cm10 19:00 IV: 50ml; Total: 550ml. kj2 21:43 IV: 100ml; Total: 650ml. ha1 Outcome: 18:22 Decision to Hospitalize by Provider. cp 21:42 Admitted to Med/surg accompanied by tech, via stretcher, room 202, with chart, ha1 21:42 Condition: stable 21:42 Instructed on the need for admit, Demonstrated understanding of instructions, 21:43 Patient left the ED. ha1 Signatures: Dispatcher [employer] Jacob Carr em1 Page, Harry, Jade Hawkins cp RN RN ap3 Oxana Pepe RN RN ha1 Adrienne Farmer RN RN cm10 Abbi Hampton RN RN kj2 Corrections: (The following items were deleted from the chart) 20:20 20:19 IV discontinued, intact, bleeding controlled, No redness/swelling at site. kj2 Pressure dressing applied, kj2
--- NOTE | 2024-05-27 18:23 | EDPHYS ---
Physician Documentation [facility] Name: Jose G Corona Age: 78 yrs Sex: Male : 1945 Arrival Date: 05/27/2024 Time: 13:44 Bed 15 Private MD: ED Physician Tin Borrego HPI: 05/27 14:09 This 78 yrs old Male presents to ER via EMS with complaints of Syncope. cp 14:09 The patient has experienced syncope, collapsed. Onset: The symptoms/episode cp began/occurred just prior to arrival. Duration: This was a single episode. Context: occurred at home, occurred while the patient was cooking in kitchen. Just prior to the episode the patient experienced abdominal pain. Associated injury: Neck: pain, tenderness, Abdomen: pain, tenderness, right groin swelling. Current symptoms: neck pain. 14:10 Associated signs and symptoms: Pertinent positives: right groin pain and swelling, cp Pertinent negatives: chest pain, numbness, weakness. Historical: - Allergies: 13:52 No Known Allergies; ap3 - Home Meds: 13:52 clopidogrel Oral [Active]; ap3 - PMHx: 13:52 CVA; High Cholesterol; Hypertension; ap3 - Immunization history:: Client reports receiving the 2nd dose of the Covid vaccine, Flu vaccine is up to date. - Infectious Disease History:: Denies. - Social history:: Smoking status: Patient denies any tobacco usage or history of. ROS: 14:14 Constitutional: Negative for fever, cp 14:14 Neck: Positive for pain at rest, tenderness, 14:14 Respiratory: Negative for shortness of breath, wheezing, 14:14 Abdomen/GI: Positive for abdominal pain, 14:14 Neuro: Positive for syncope, 14:14 Eyes: Negative for injury, pain, redness, and discharge, cp 14:14 Cardiovascular: Negative for chest pain, edema, palpitations, 14:14 MS/extremity: Negative for injury or acute deformity, 14:14 All other systems are negative, Exam: 14:15 Constitutional: The patient appears in no acute distress, alert, awake, cp non-diaphoretic, non-toxic, well developed, well nourished, 14:15 Head/face: Noted is tenderness, that is mild, of the left side of the back of head, left occipital area, right side of the back of head and right occipital area, 14:15 Eyes: Periorbital structures: appear normal, Pupils: equal, round, and reactive to cp light and accomodation, Extraocular movements: intact throughout, Conjunctiva: normal, no exudate, no injection, Sclera: no appreciated abnormality, Lids and lashes: appear normal, bilaterally, 14:15 ENT: External ear(s): are unremarkable, Nose: is normal, Mouth: Lips: moist, Oral mucosa: moist, Posterior pharynx: Airway: no evidence of obstruction, patent, 14:15 Neck: 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, 14:15 Chest/axilla: Inspection: normal, Palpation: is normal, no crepitus, no tenderness, 14:15 Cardiovascular: Rate: normal, Edema: is not appreciated, JVD: is not appreciated, 14:15 Respiratory: the patient does not display signs of respiratory distress, Respirations: normal, no use of accessory muscles, no retractions, labored breathing, is not present, Breath sounds: are clear throughout, no decreased breath sounds, no stridor, no wheezing, 14:15 Abdomen/GI: Inspection: Bowel sounds: active, all quadrants, Palpation: soft, in all quadrants, Hernia: noted in the right inguinal area, tenderness, that is moderate, 14:15 Back: vertebral tenderness, is not appreciated, 14:15 Neuro: Orientation: to person, place \T\ time. Mentation: is normal, Motor: moves all fours, no focal deficits, Sensation: is normal, 14:55 ECG was reviewed by the Attending Physician. cp Vital Signs: 14:27 BP 146 / 80; Pulse 88; Resp 15; Temp 98.1(O); Pulse Ox 97% on R/A; Weight 66.68 kg; cm10 Height 5 ft. 6 in. ; Pain 4/10; 16:30 BP 143 / 70; Pulse 96; Resp 17; Pulse Ox 96% on R/A; cm10 18:30 BP 151 / 82; Pulse 96; Resp 18; Pulse Ox 97% on R/A; cm10 19:09 BP 160 / 66; Pulse 71; Resp 18; Pulse Ox 96% ; kj2 20:10 BP 158 / 64; Pulse 68; Resp 18; Temp 98; Pulse Ox 100% on R/A; kj2 14:27 Body Mass Index 23.73 (66.68 kg, 167.64 cm) cm10 14:27 Pain Scale: Adult cm10 MDM: 13:50 Medical Screening Exam initiated cp 15:00 Differential Diagnosis: aortic aneurysm, cardiac arrhythmia, GI bleed, seizure, sepsis, cp vasovagal episode. 17:40 Management of patient was discussed with the following: Ground Host/Hostess: DR Joshua who will cp consult and see patient tomorrow. Care significantly affected by the following chronic conditions: Hypertension. 17:45 Data reviewed: vital signs, nurses notes, lab test result(s), EKG, radiologic studies, cp CT scan, and as a result, I will admit patient. 18:25 Management of patient was discussed with the following: Hospitalist: DR Anand will cp admit after discussion. 05/27 14:09 Order name: Basic Metabolic Panel; Complete Time: 15:54 cp 05/27 15:54 Interpretation: Normal except: CL 111; BUN 27; CRE 1.41; GFR 51. cp 05/27 14:09 Order name: CBC with Diff; Complete Time: 15:22 cp 05/27 15:23 Interpretation: Normal except: RDW 17.1; MPV 7.5. cp 05/27 14:09 Order name: LFT's; Complete Time: 15:54 cp 05/27 14:09 Order name: Magnesium; Complete Time: 15:54 cp 05/27 14:09 Order name: NT PRO-BNP; Complete Time: 15:54 cp 05/27 14:09 Order name: PT-INR; Complete Time: 15:54 cp 05/27 14:09 Order name: Troponin HS; Complete Time: 15:54 cp 05/27 14:50 Order name: Urinalysis W/Microscopic; Complete Time: 19:51 cp 05/27 14:09 Order name: XRAY Chest (1 view); Complete Time: 15:22 cp 05/27 15:22 Interpretation: Report review. cp 05/27 14:09 Order name: CT Aorta for Dissection; Complete Time: 16:38 cp 05/27 16:39 Interpretation: Report reviewed. cp 05/27 15:54 Order name: CT Head C Spine; Complete Time: 16:38 cp 05/27 20:17 Order name: Echo with Doppler EDMS 05/27 20:17 Order name: Carotid Artery Bilateral EDMS 05/27 14:09 Order name: EKG; Complete Time: 14:09 cp 05/27 14:09 Order name: Cardiac monitoring; Complete Time: 14:56 cp 05/27 14:09 Order name: EKG - Nurse/Tech; Complete Time: 14:56 cp 05/27 14:09 Order name: IV Saline Lock; Complete Time: 14:56 cp 05/27 14:09 Order name: Labs collected and sent; Complete Time: 14:56 cp 05/27 14:09 Order name: O2 Per Protocol; Complete Time: 14:56 cp 05/27 14:09 Order name: O2 Sat Monitoring; Complete Time: 14:56 cp 05/27 15:13 Order name: Labs - recollect needed: recollect blue top please; Complete Time: 15:45 em1 05/27 16:58 Order name: Misc. Order: change to gown; Complete Time: 17:23 cp EC:55 Rate is 86 beats/min. Rhythm is regular. HI interval is normal. QRS interval is normal. cp QT interval is normal. T waves are Inverted in lead aVR. Interpreted by me. Reviewed by me. Administered Medications: 15:09 Drug: NS 0.9% IV 500 ml 500 ml IV at 500 ml/hr once; to be given as a bolus over 60 cm10 minutes Volume: 500 ml; Route: IV; Rate: 500 ml/hr; Site: right antecubital; 18:35 Follow up: Response: No adverse reaction; IV Status: Completed infusion; IV Intake: cm10 500ml 17:23 Drug: fentaNYL (PF) IVP 25 mcg IVP once Route: IVP; Site: right antecubital; cm10 17:53 Follow up: Response: No adverse reaction cm10 18:32 Drug: fentaNYL (PF) IVP 25 mcg IVP once Route: IVP; Site: right antecubital; cm10 19:10 Follow up: Response: No adverse reaction kj2 18:32 Drug: cefOXitin IVPB 1 grams IVPB once over 30 mins; (mix in 50 mL NS) Route: IVPB; cm10 Infused Over: 30 mins; Site: right antecubital; 19:00 Follow up: Response: No adverse reaction; IV Status: Completed infusion; IV Intake: [id number] 19:09 Drug: metroNIDAZOLE IVPB 500 mg 100 ml IVPB once over 30 mins Volume: 100 ml; Route: kj2 IVPB; Infused Over: 30 mins; Site: right antecubital; 21:43 Follow up: Response: No adverse reaction; IV Status: Completed infusion; IV Intake: ha1 100ml Disposition: 05/28 19:31 Chart complete. cp Disposition Summary: 05/27/24 18:22 Hospitalization Ordered Notes: Hospitalization Status: Inpatient Admission cp Provider: Jeanie Anand cp [facility] cp Condition: Stable cp Problem: new cp Symptoms: have improved cp Bed/Room Type: Standard cp Room Assignment: (05/27/24 20:03) [facility] Diagnosis - Syncope cp - Unilateral inguinal hernia, with obstruction, without gangrene, not specified as cp recurrent - right Forms: - Medication Reconciliation Form cp - SBAR form cp - Leadership Thank You Letter cp Addendum: 05/30/2024 10:03 Co-signature as Attending Physician, Tin Borrego MD I reviewed the patient's care r n provided by the Advanced Practice Provider and agree with the diagnosis and treatment plan. Signatures: Dispatcher [employer] EDMS Tin Borrego MD MD rn Martinez, Eric emHarry Oleary PA PA cp Jade Cortes RN RN ap3 Adrienne Farmer RN RN cm10 Crystal Richard kmf Abbi Hampton RN RN kj2 Oxana Pepe RN ha1 Corrections: (The following items were deleted from the chart) 05/27 20:03 18:22 cp kmf
[2024-05-27 19:19] LABS: Sqamous Epithelial <5 /HPF (None Seen); Urine Bacteria <20 /HPF (<20); Urine Bilirubin NEGATIVE (Negative); Urine Blood Negative (Negative); Urine Clarity Clear (Clear); Urine Color Colorless (Yellow); Urine Culture Reflex Order NOT NEEDED; Urine Glucose NEGATIVE (Negative); Urine Ketones NEGATIVE (Negative); Urine Micro Reflex YN NO BILL MICROSCOPIC; Urine Mucus Slight /HPF (None Seen); Urine Nitrite NEGATIVE (Negative); Urine Protein NEGATIVE (Negative); Urine RBC <5 /HPF (None Seen); Urine Urobilinogen Normal (Normal); Urine WBC <5 /HPF (<5); Urine pH 7.5 (5.0-7.0)
[2024-05-27 19:20] LABS: Specific Gravity > 1.030 (1.005-1.030)
--- NOTE | 2024-05-27 20:01 | P.HP ---
Certification for Inpatient Patient admitted to: Inpatient With expected LOS: >2 Midnights Practitioner: I am a practitioner with admitting privileges, knowledge of patient current condition, hospital course, and medical plan of care. Services: Services provided to patient in accordance with Admission requirements found in Title 42 Section 412.3 of the Code of Federal Regulations Patient History Date of Service: 05/27/24 Reason for admission: fall History of Present Illness: 78-year-old male presented to the ER after complaints of a fall in his kitchen earlier today around 2 PM. He reports that he was cooking at the time he felt he had passed out hit his head on the fridge. He does have a past medical history of hypertension. The patient also reported some epigastric pain and right groin pain. A CT scan showed a suspected incarcerated hernia. He does have history of hypertension. Denies previous syncopal episodes. Imaging was done in the emergency room. He denies history of heavy alcohol use or seizures. Review of Systems 10-point ROS is otherwise unremarkable Physical Examination - Physical Exam General: Alert, Oriented x3 HEENT: Atraumatic, Normocephalic Respiratory: Clear to auscultation bilaterally, Normal air movement Cardiovascular: Normal pulses Gastrointestinal: Normal bowel sounds, Soft and benign External genitalia: Other (right groin hernia) - Studies Laboratory Data (last 24 hrs) 05/27/24 05/27/24 05/27/24 15:25 14:53 14:53 WBC 10.30 Hgb 13.9 Hct 42.1 Plt Count 282 PT 10.9 INR 0.97 Sodium 141 Potassium 4.6 BUN 27 H Creatinine 1.41 H Glucose 100 Magnesium 2.2 Total Bilirubin 0.4 AST 24 ALT 21 Alkaline Phosphatase 52 Assessment and Plan - Problems (Diagnosis) (1) Syncope Current Visit: Yes Status: Acute (2) Hernia Current Visit: Yes Status: Acute - Plan 78-year-old male with history of hypertension, previous hernia presents with syncopal episode. Syncope Epigastric pain Right inguinal hernia hypertension Plan: admit to med surg NPO after midnight telemetry ECHO check lipase prn analgesics Surgery consulted in ED IVF DVT:SCDs Code:full - Advance Directives Does patient have a Living Will: No Does patient have a Durable POA for Healthcare: No
[2024-05-27] MEDS ORDERED: ACETAMINOPHEN 500 MG TAB PO PRN (20:10)
--- NOTE | 2024-05-27 20:57 | RAD REPORT ---
EXAMINATION: CAROTID DUPLEX ULTRASOUND CLINICAL INDICATION: syncope TECHNIQUE: Real-time grayscale, color flow and spectral Doppler sonographic images were obtained of t he extracranial carotid system using a linear transducer. COMPARISON: No prior exam. FINDINGS: RIGHT: Common carotid artery: 74 cm/s Internal carotid artery: Occluded. External carotid artery: 144 cm/s Vertebral artery Antegrade LEFT: Common carotid artery: 96 cm/s Internal carotid artery: 100.5 cm/s External carotid artery: 251 cm/s Left ICA/CCA ratio: 1.4 Plaque: Moderate Vertebral artery Antegrade IMPRESSION: Occlusion of the right internal carotid artery, presumably chronic. Moderate stenosis caused by hard plaque left carotid bulb estimated at 50-70%. The degrees of stenosis, if any, are quantified according to the consensus statement of the Society o f Radiologists in Ultrasound (SRUS). Please refer to Alejo E, Poncho C, Naima G et al. Carotid Artery Stenosis: Morales-Scale and Doppler US Diagnosis--Society of Radiologists in Ultrasound Consensus Conference. Radiology. 2003;229(2):340-6.
[2024-05-27 21:57] VITALS: O2SAT 100
[2024-05-27 22:08] VITALS: BMI 23.6
[2024-05-27] MEDS: NA CHLORIDE 0.9% 1,000 ML IV SCH (22:20)
[2024-05-28] MEDS: FLU (Fluarix Triv) TS24-25(6MOS UP)/PF 45 MCG/0.5 ML Syringe IM ONE (07:30)
[2024-05-28] MEDS ORDERED: MORPHINE 2 MG/ML SYR IV PRN (07:34)
[2024-05-28] MEDS ORDERED: ONDANSETRON 4 MG/2 ML VIAL IV PRN (07:35)
[2024-05-28] MEDS: PIPER TAZO 3.375 GM in NA CHLORIDE 0.9% 100 ML IV SCH (08:41)
[2024-05-28] MEDS ORDERED: CEFTRIAXONE 1,000 MG in NA CHLORIDE 0.9% 50 ML IVPB SCH (09:00)
--- NOTE | 2024-05-28 10:20 | CON ---
Date of Consultation: 05/28/2024 Reason For Consultation: Incarcerated right inguinal hernia. History Of Present Illness: The patient is a 78-year-old gentleman who presented to the emergency ro om yesterday with complaint of syncope. He fell while he was cooking and he passed out and then he w eulalia with some abdominal pain and pain in the right lower quadrant associated with the swelling. He c tsering to the emergency room, had a syncope workup done and initial reports are negative for any signifi cant findings. However, he was found to have an incarcerated right inguinal hernia. I was consulted today. He denies any nausea, vomiting, or any abdominal pain. He states that the hernia has reduce d back in. He denies any diarrhea, constipation, blood in his stool, dysuria, hematuria. No sore th roat, runny nose, cough, headaches, or dizziness. No chest pain at this time. No fever or chills. The patient does take Plavix. Review of Systems: Otherwise unremarkable. Past Medical History: Hypertension, high cholesterol, stroke. Past Surgical History: Left inguinal hernia repair 10 years ago by me, right carotid surgery for blo ckage. Social History: The patient smokes occasionally and does not drink alcohol. Family History: Noncontributory. Physical Examination: Vital Signs: Stable. He is currently afebrile. General: He is awake, alert, oriented x3. Head and Neck: No masses. Chest: Clear. Heart: S1, S2. Abdomen: Soft, nondistended, nontender. Positive bowel sounds. : The groin region examination reveals no incarcerated inguinal hernia. There is an inguinal jessica ia present in the right groin, but is completely reduced. There is no hernia on the left side. Norm al penis and testes. Extremities: Adequately perfused. Nontender. Neuro: Nonfocal. Laboratory Data: Reviewed. His white count is normal. H and H are normal. Platelets are normal. INR is . Chemistry reviewed. Slight dehydration, otherwise unremarkable. CT of the head, cervical spine, chest x-ray, carotid ultrasound, all reviewed. Of significance is the di latation of the small bowel with possible incarcerated right inguinal hernia causing the dilatation t hat was done yesterday. As stated, his syncope workup is in progress. He has an echo pending. Assessment: A 78-year-old gentleman with multiple medical problems with syncope and incarcerated rig ht inguinal hernia, which is reduced now. Recommendation: I recommend continuing the medical and cardiology workup as the patient is asymptoma tic from his hernia. He can be fed and discharged once his workup is completed. He can follow up wi th me and I can repair the hernia as an outpatient. He will need cardiac clearance for that purpose. Plan of care was discussed with the hospitalist team as well as the patient. DANITA/ANNAMARIA Voice ID: [id number] Report ID: [id number]
--- NOTE | 2024-05-28 11:00 | P.DS ---
Admission Date: 05/27/24 Discharge Date: 05/28/24 Disposition: ROUTINE DISCHARGE Discharge Condition: GOOD Reason for Admission: fall Brief History of Present Illness: 78-year-old male presented to the ER after complaints of a fall in his kitchen earlier today around 2 PM. He reports that he was cooking at the time he felt he had passed out hit his head on the fridge. He does have a past medical history of hypertension. The patient also reported some epigastric pain and right groin pain. A CT scan showed a suspected incarcerated hernia. He does have history of hypertension. Denies previous syncopal episodes. Imaging was done in the emergency room. He denies history of heavy alcohol use or seizures. - Physical Exam General: Alert, Oriented x3 HEENT: Atraumatic, Normocephalic Respiratory: Clear to auscultation bilaterally, Normal air movement Cardiovascular: Normal pulses Gastrointestinal: Normal bowel sounds, Soft and benign External genitalia: Other (right groin hernia) Hospital Course: 78-year-old male with a past medical history of CAD, inguinal hernia presented to the ER after complaints of a fall in his kitchen earlier today around 2 PM. He reports that he was cooking at the time he felt he had passed out hit his head on the fridge. He does have a past medical history of hypertension. The patient also reported some epigastric pain and right groin pain. A CT scan showed a suspected incarcerated hernia. Denies previous syncopal episodes. Imaging was done in the emergency room. He denies history of heavy alcohol use or seizures. Surgery was consulted for inguinal hernia, hernia was reduced, patient can follow-up outpatient with surgery after cardiac clearance competed. Complaints of bilateral neck pain, carotid Doppler shows stenosis of the left carotid artery. Patient will need to follow-up with vascular surgery after discharge. Diet was advanced, tolerating diet, able to discharge home. Patient needs cardiac clearance for hernia surgery with Dr. Joshua Medications please resume Losartan 100 mg 1 p.o. daily Atorvastatin 80 mg 1 p.o. day Plavix 75 mg 1 p.o. daily Amlodipine 10 mg 1 p.o. daily Zetia 10 mg 1 p.o. daily Assessment Carotid [id number]-[id number] with cardiology after discharge Syncope-no syncopal episodes while inpatient Suspected small bowel obstruction with incarcerated hernia,-he was evaluated by surgery, diet was advanced, abdominal pain resolved, He needs to follow-up with surgery after discharge for outpatient inguinal hernia repair, with cardiac clearance. CAD with carotid stenosis-needs to follow-up with vascular surgery after discharge Hypertension-resume home meds after Hyperlipidemia-resume home cholesterol medications after discharge Rad/Lab/Micro: CT Head No evidence of acute intracranial abnormality CT Cervial spine, No evidence of acute osseous abnormality of the cervical spine CT Disection IMPRESSION: No evidence of thoracic or abdominal aortic aneurysm or dissection. Moderate mechanical small bowel obstruction suspected to be caused by incarcerated right inguinal hernia (ruled out my surgery) Cartod US Occlusion of the right internal carotid artery, presumably chronic. Moderate stenosis caused by hard plaque left carotid bulb estimated at 50-70%. Continue home medicines as previously prescribed GOAL: Clear understanding of disease process INSTRUCTIONS: Physician Discharge Instructions: -Follow-up with Dr. Joshua after after discharge, needs cardiac clearance by cardiology -Follow-up with PCP in 1 to 2 weeks -Please call Dr. Nicholson at [phone] if any questions regarding hospital stay -Please call nursing station at [phone] if any nursing or medication questions -Return to the emergency room if symptoms worsen Diet: ADA, low sodium Activity: Fall precautions Vital Signs/Physical Exam: Temp Pulse Resp BP Pulse Ox 97.5 F 80 14 127/67 96 05/28/24 08:00 05/28/24 08:00 05/28/24 08:00 05/28/24 08:00 05/28/24 08:00 Laboratory Data at Discharge: WBC 10.30 thou/uL (4.3-10.9) 05/27/24 14:53 Hgb 13.9 g/dL (13.6-17.9) 05/27/24 14:53 Hct 42.1 % (39.6-49.0) 05/27/24 14:53 Plt Count 282 thou/uL (152-406) 05/27/24 14:53 PT 10.9 SECONDS (9.4-12.5) 05/27/24 15:25 INR 0.97 05/27/24 15:25 Sodium 141 mEq/L (136-145) 05/27/24 14:53 Potassium 4.6 mEq/L (3.5-5.1) 05/27/24 14:53 BUN 27 mg/dL (7-18) H 05/27/24 14:53 Creatinine 1.41 mg/dL (0.70-1.30) H 05/27/24 14:53 Glucose 100 mg/dL (74-106) 05/27/24 14:53 Magnesium 2.2 mg/dL (1.6-2.4) 05/27/24 14:53 Total Bilirubin 0.4 mg/dL (0.2-1.0) 05/27/24 14:53 AST 24 U/L (15-37) 05/27/24 14:53 ALT 21 U/L (16-61) 05/27/24 14:53 Alkaline Phosphatase 52 U/L (45-117) 05/27/24 14:53 Physician Discharge Instructions: 78-year-old male with a past medical history of CAD, inguinal hernia presented to the ER after complaints of a fall in his kitchen earlier today around 2 PM. He reports that he was cooking at the time he felt he had passed out hit his head on the fridge. He does have a past medical history of hypertension. The patient also reported some epigastric pain and right groin pain. A CT scan showed a suspected incarcerated hernia. Denies previous syncopal episodes. Imaging was done in the emergency room. He denies history of heavy alcohol use or seizures. Surgery was consulted for inguinal hernia, hernia was reduced, patient can follow-up outpatient with surgery after cardiac clearance competed. Complaints of bilateral neck pain, carotid Doppler shows stenosis of the left carotid artery. Patient will need to follow-up with vascular surgery after discharge. Diet was advanced, tolerating diet, able to discharge home.. Medications please resume Losartan 100 mg 1 p.o. daily Atorvastatin 80 mg 1 p.o. day Plavix 75 mg 1 p.o. daily Amlodipine 10 mg 1 p.o. daily Zetia 10 mg 1 p.o. daily Assessment Carotid stenosis-discharged home on [id number] with cardiology after discharge Syncope Suspected small bowel obstruction with incarcerated hernia,-he was evaluated by surgery, diet was advanced, abdominal pain resolved, He needs to follow-up with surgery after discharge for outpatient inguinal h ernia repair, with cardiac clearance. CAD with carotid stenosis-needs to follow-up with vascular surgery after discharge Hypertension-resume home meds after Hyperlipidemia-resume home cholesterol medications after discharge Rad/Lab/Micro: CT Head No evidence of acute intracranial abnormality CT Cervial spine, No evidence of acute osseous abnormality of the cervical spine CT Disection IMPRESSION: No evidence of thoracic or abdominal aortic aneurysm or dissection. Moderate mechanical small bowel obstruction suspected to be caused by incarcerated right inguinal hernia (ruled out by surgery) Cartod US Occlusion of the right internal carotid artery, presumably chronic. Moderate stenosis caused by hard plaque left carotid bulb estimated at 50-70%.-Follow-up with vascular surgery after Continue home medicines as previously prescribed GOAL: Clear understanding of disease process INSTRUCTIONS: Physician Discharge Instructions: -Follow-up with Dr. Joshua after -Follow-up with PCP in 1 to 2 weeks -Please call Dr. Nicholson at [phone] if any questions regarding hospital stay -Please call nursing station at [phone] if any nursing or medication questions -Return to the emergency room if symptoms worsen Diet: ADA, low sodium Activity: Fall precautions Followup: Maryana Hector MD [Primary Care Provider] - 1-2 Weeks Alberto Joshua MD [ACTIVE - CAN ADMIT] - 1-2 Weeks Myke Pascal MD [ACTIVE - CAN ADMIT] - Time spent managing pt's care (in minutes): 45
[2024-05-28 12:53] VITALS: TEMP 98
--- NOTE | 2024-05-28 15:31 | ECHO ---
HEIGHT: 5 ft 6 in WEIGHT: 146 lb 0 oz DATE OF STUDY: 05/28/[address]: Jeanie Anand MD 2-DIMENSIONAL: YES M.MODE: YES DOPPLER: YES COLOR FLOW: YES TDS: NO PORTABLE: YES DEFINITY: NO BUBBLE STUDY: NO DIAGNOSIS: SYNCOPE CARDIAC HISTORY: CATHERIZATION: NO SURGERY: NO PROSTHETIC VALVE: NO PACEMAKER: NO MEASUREMENTS (cm) DIASTOLIC (NORMALS) SYSTOLIC (NORMALS) IVSd 1.1 (0.6-1.2) LA Diam 2.6 (1.9-4.0) LVEF 60-65% LVIDd 4.4 (3.5-5.7) LVIDs 3.0 (2.0-3.5) %FS 32% LVPWd 1.2 (0.6-1.2) Ao Diam 2.6 (2.0-3.7) 2 DIMENSIONAL ASSESSMENT: RIGHT ATRIUM: NORMAL LEFT ATRIUM: NORMAL RIGHT VENTRICLE: NORMAL LEFT VENTRICLE: NORMAL TRICUSPID VALVE: TRACE TRICUSPID REGURGITATION MITRAL VALVE: NORMAL PULMONIC VALVE: NORMAL AORTIC VALVE: NORMAL PERICARDIAL EFFUSION: NONE AORTIC ROOT: NORMAL LEFT VENTRICULAR WALL MOTION: NORMAL. DOPPLER/COLOR FLOW: NORMAL. COMMENTS: 1. NORMAL LEFT VENTRICULAR SYSTOLIC FUNCTION. LEFT VENTRICULAR EJECTION FRACTION 60-65%. NORMAL WALL MOTION. 2. NORMAL DIASTOLIC FUNCTION. TECHNOLOGIST: CRUZ ARREDONDO
[2024-05-28 16:54] VITALS: BP 136/70
--- NOTE | 2024-05-31 10:55 | EKG ---
Test Date: 2024-05-27 Test Time: 14:47:49 Commercial Agent: GENEVA MEASUREMENT RESULTS: Intervals: Rate: 86 [place]: 154 QRSD: 78 QT: 356 QTc: 426 [place]: P: 44 [place]: 154 QRS: -28 T: 64 INTERPRETIVE STATEMENTS: Normal sinus rhythm Normal ECG Compared to ECG 04/17/2020 20:24:29 T-wave abnormality no longer present Electronically Signed On 05-31-24 10:51:14 [employer] by Chidi Pettit
== END 2024-05-28 16:41 | disposition home or self-care (01) | DRG 395 ==
LOC: ER 13:44 → 2ND 20:10
PROVIDERS: ADMIT Internal Medicine; ATTEND Hospitalist
DX: K40.30 Unilateral inguinal hernia, with obstruction, without gangrene, not specified as recurrent (principal); I10 Essential (primary) hypertension; E78.00 Pure hypercholesterolemia, unspecified; I65.22 Occlusion and stenosis of left carotid artery; I25.10 Atherosclerotic heart disease of native coronary artery without angina pectoris; Z79.02 Long term (current) use of antithrombotics/antiplatelets; Z86.73 Personal history of transient ischemic attack (TIA), and cerebral infarction without residual deficits
CPT/HCPCS: 36415; 70450; 71045; 71275; 72125; 74175; 80048; 80076; 81001; 83735; 83880; 84484; 85025; 85610; 93005; 93306; 93880; 96361; 96365; 96366; 96367; 96375; 99285; J0694; J2543; J3010; J7030; J7040; Q9967

== ENCOUNTER 2024-06-30 06:40 | Day surgery (SDC) | payer OTHER ==
[2024-06-25 11:47] LABS: Anion Gap 7.5 mEq/L (5.0-15.0); Potassium 4.5 mEq/L (3.5-5.1)
[2024-06-25 11:48] LABS: Absolute Eosinophils 0.2 K/uL (0-0.5); Absolute Lymphocytes (CBC) 2.6 K/uL (0.7-4.9); Absolute Monocytes 0.7 K/uL (0.1-1.3); Absolute Neutrophil 4.4 K/uL (1.8-8.0); Basophils % 0.4 % (0-1.3); Eosinophils % 2.3 % (0-4.4); Hematocrit 40.2 % (39.6-49.0); Hemoglobin 13.4 g/dL (13.6-17.9); Lymphocytes % 32.6 % (15.3-44.8); MCH 27.7 pg (27.0-35.0); MCHC 33.3 g/dL (32.0-36.0); MCV 83.1 fL (80-100); MPV 8.1 fL (7.6-11.3); Monocytes % 9.5 % (3.3-12.3); Neutrophils % 55.2 % (41.7-73.7); Nucleated Red Blood Cells % 0.1 % (0-0); Platelets 245 thou/uL (152-406); RBC Red Blood Cell Count 4.84 M/uL (4.33-5.43); Red Cell Distribution Width 16.3 % (12.1-15.2)
[2024-06-25 11:52] LABS: PT Prothrombin Time 11.2 SECONDS (9.4-12.5); PTT, Activated Partial Thromb 31.2 SECONDS (24.3-36.9); Protime INR 1.07
--- NOTE | 2024-06-25 12:13 | RAD REPORT ---
EXAM: Chest Pa And Lat (2 Views) HISTORY: 79 years Male pre op COMPARISON: 05/27/2024 FINDINGS: LUNGS/PLEURA: The lungs are clear. No pleural effusions or pneumothorax. No pulmonary edema. Calcifie d right lower lobe nodule. MEDIASTINUM: The mediastinal silhouette is within normal limits CARDIAC: The cardiac silhouette is within normal limits. UPPER ABDOMEN: No significant abnormality. BONES: No acute abnormality. LINES/TUBES/OTHER: N/A IMPRESSION: No evidence of acute cardiopulmonary disease.
--- NOTE | 2024-06-29 12:56 | EKG ---
Test Date: 2024-06-25 Test Time: 12:01:45 Microbiology Coordinator: MEASUREMENT RESULTS: Intervals: Rate: 87 ND: 156 QRSD: 72 QT: 354 QTc: 425 [place]: P: 45 ND: 156 QRS: -40 T: 18 INTERPRETIVE STATEMENTS: Normal sinus rhythm Left axis deviation Anterior infarct, age undetermined Abnormal ECG Compared to ECG 05/27/2024 14:47:49 Left-axis deviation now present Myocardial infarct finding now present Electronically Signed On 06-29-24 12:47:39 REGIONAL GUIDE by Chidi Pettit
[2024-06-30] MEDS ORDERED: NA CHLORIDE 0.9% 500 ML ONE (06:42)
[2024-06-30] MEDS ORDERED: HEPA 1000U/500MLS 2,000 UNIT/1,000 ML BAG IV ONE (06:47)
[2024-06-30] MEDS ORDERED: ATROPINE SULF 1 MG/10 ML SYR IV ONE (06:48)
[2024-06-30] MEDS ORDERED: MIDAZOLAM HCL 2 MG/2 ML INJ ONE (06:48)
[2024-06-30] MEDS ORDERED: LIDOCAINE 1% 20 ML MDV ONE (06:48)
[2024-06-30] MEDS ORDERED: FENTANYL CITR 100 MCG/2 ML ONE (06:49)
[2024-06-30] MEDS ORDERED: NALOXONE 0.4 MG/ML VIAL ONE (06:50)
[2024-06-30] MEDS ORDERED: FLUMAZENIL 0.1 MG/ML (5 mL VIAL) IV ONE (06:50)
--- NOTE | 2024-06-30 08:30 | OP ---
Date of Procedure: 06/30/2024 Surgeon: PIPE ASHTON Procedure Performed: Bilateral carotid angiogram. Indication: Carotid stenosis. Access: Right common femoral artery 5-Serbian, closed with Mynx closure device. Complications: None. Bleeding: Less than 50 mL. Anesthesia: Total sedation time is 30 minutes, used fentanyl and Versed. Description Of Procedure: After risks, benefits, and alternatives were explained, patient agreed to procedure and signed informed consent. The patient was brought into cardiac catheterization laborato , prepped and draped in sterile fashion. Then, I accessed right common femoral artery using microp uncture kit, ultrasound guidance, fluoroscopy, placed 5-Serbian [place] sheath, and took a 4-Serbian 3 DRC catheter, engaged the right brachiocephalic and took views of the right side and then engaged the left common carotid, took standard views, and then removed the catheter and the sheath. Mynx closur e device was used for closure with good hemostasis. Findings: 1. 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 2. Left common carotid is patent. Left external carotid is patent and the left internal carotid has proximal 50% to 60% stenosis. 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 Recommendation: Medical management and close observation. SR/MODL Voice ID: [id number] Report ID: [id number]
[2024-06-30 10:03] VITALS: O2SAT 99
[2024-06-30 11:25] VITALS: BP 148/63; TEMP 97.6
== END 2024-06-30 11:19 | disposition home or self-care (01) ==
LOC: CCL 06:40
PROVIDERS: ATTEND Internal Medicine
DX: I65.23 Occlusion and stenosis of bilateral carotid arteries (principal); I10 Essential (primary) hypertension; E78.2 Mixed hyperlipidemia; R55 Syncope and collapse; Z86.73 Personal history of transient ischemic attack (TIA), and cerebral infarction without residual deficits; Z87.891 Personal history of nicotine dependence; Z79.02 Long term (current) use of antithrombotics/antiplatelets; Z79.899 Other long term (current) drug therapy
CPT/HCPCS: 93005; 85025; 80048; 36415; 85610; 85730; 71046; 36222; 76937; C1893; J2003; J2250; J3010; J7040; C1760; 99152; 99153; J0461; J2310